=== PATIENT | female | born 1945 | race Caucasian/White ===

== ENCOUNTER 2019-12-16 16:28 | Observation (INO) | payer OTHER ==
--- OUTSIDE RECORDS SUMMARY | 2019-12-16 16:30 | XMS REPORT | Summary of Care ---
:1945 Author Organization [facility] Address [address] [place] [address] Care Team Providers Name Role Phone Solitario Titi Primary Care Provider Reason for Visit Reason Comments Skin Check Encounter Details Date Type Department Care Team Description 04/18/2019 Office Visit [facility] George Arizmendi ( Primary Dx); Dermatology-Cornelio Scott MD Other seborrheic keratosis; [place] [address] [address] History of nonmelanoma skin cancer; [address] [facility] [id number] Irritant dermatitis; [place], [place] Morin hemangioma; [address] [address] Neoplasm of uncertain behavior of skin o f [place], [place] [phone] [address] [phone] Allergies Active Allergy Reactions Severity Noted Date Comments Decongestant Tablet Other - See comments 12/31/2012 "things seem real bright" Atorvastatin Calcium Other - See comments 12/31/2012 Scalp tingles documented as of this encounter (statuses as of 04/18/2019) Medications Medication Sig Dispensed Refills Start Date End Date Status losartan-hydrochlorothi Take 1 Tab by 0 Active azide (HYZAAR) 100-25 mouth daily. mg per tablet MULTIVITS-MIN/FA/CA Take by mouth. 0 Active CARB/VIT K (ONE-A-DAY WOMEN'S 50+ ORAL) foLIC acid (FOLATE) 1 Take 1 mg by 0 Active mg tablet mouth daily. fluticasone (FLONASE) Use in each 0 Active 50 mcg/actuation nasal nostril daily. spray cetirizine (ZYRTEC) 10 Take 10 mg by 0 Active mg tablet mouth daily. levothyroxine Take 200 mcg by 0 Active (SYNTHROID) 200 mcg mouth every tablet morning. omeprazole (PRILOSEC Take 20 mg by 0 Active OTC) 20 mg tablet mouth daily. paroxetine (PAXIL) 10 Take 5 mg by 0 Active mg tablet mouth daily. VITAMIN B COMPLEX ORAL Take by mouth. 0 Active POTASSIUM CHLORIDE Take by mouth. 0 Active (KLOR-CON 10 ORAL) METFORMIN HCL Take 800 mg by 0 A ctive (METFORMIN ORAL) mouth 2 (two) times daily. triamcinolone acetonide Apply to area(s) 80 g 1 01/01/20 13 Active (TRIDERM) 0.1 % cream 2 (two) times daily. ezetimibe-simvastatin Take 1 Tab by 0 Active 10-40 (VYTORIN 10/40) mouth at bedtime. 10-40 mg tablet ASPIRIN (ASPIR-81 ORAL) Take by mouth 0 Active daily. PROAIR HFA 90 0 11/18/2015 Activ e mcg/actuation inhaler SYMBICORT 160-4.5 12 01/02/2016 A ctive mcg/actuation inhaler JANUVIA 100 mg tablet 3 01/02/2016 Active SPIRIVA WITH HANDIHALER 3 01/02/2016 Active 18 mcg inhalation device triamcinolone acetonide Apply to area(s) 30 g 0 01/11/20 16 Active (TRIDERM) 0.1 % cream 2 (two) times daily. canagliflozin 0 06/07/2016 Activ e (INVOKANA) 100 mg tablet metroNIDAZOLE 1 % Apply to 60 g 6 04/18/2019 A ctive creamIndications: affected area(s) Rosacea daily. Apply to face documented as of this encounter (statuses as of 04/18/2019) Active Problems No known active problemsdocumented as of this encounter (statuses as of 04/18/2019) Social History Tobacco Use Types Packs/Day Years Used Date Former Smoker Cigarettes Alcohol Use Drinks/Week oz/Week Comments Yes 0 Standard drinks or equivalent 0.0 Sex Assigned at Date Recorded Not on file Job Start Date Occupation Industry Not on file Not on file Not on file Travel History Travel Start Travel End No recent travel history available. documented as of this encounter Last Filed Vital Signs Not on filedocumented in this encounter Progress Notes Nica Robledo MD - 04/18/2019 11:00 AM CDT Mesha Mckeon is a 71 year old female. Cc: rash on face HPI Mesha Mckeon is a 73 year old female with a PMHx of NMSC who presents for her annual skin check. She c/o a rash on the right cheek, present for months, not painful or itching, only using cetaphil moisturizer on it. Also having excess sweating and itching below the breasts. Histories Mesha has no past medical history on file. She has no past surgical history on file. Her family history is not on file. She reports that she has quit smoking. Her smoking use included cigarettes. She does not have any smokeless tobacco history on file. She reports that she drinks alcohol. (+) History of skin cancer (-) family hx of skin cancer SCC, L lateral neck s/p excision - 04/2009 Allergies Mesha is allergic to decongestant tablet and lipitor [atorvastatin calcium]. Medications Mesha has a current medication list which includes the following prescription(s): canagliflozin, januvia, proair hfa, spiriva with handihaler, symbicort, triamcinolone acetonide, aspirin, ezetimibe-simvastatin 10-40, cetirizine, fluticasone propionate, folic acid, levothyroxine, losartan-hydrochlorothiazide, metformin hcl, mv-mn/folic acid/calcium/vit k, omeprazole, paroxetine, potassium chloride, triamcinolone acetonide, and vitamin b complex. Review of Systems Constitutional: No fevers, chills, weight loss. Psych: no mood changes or agitation. Heme: bleeding (-) Physical Exam Constitutional: well developed, well nourished, NAD Neuro: A&Ox3, Skin: warm, dry. FACE: Positive EYES: Negative NOSE: Negative EARS: Negative SCALP: Negative NECK: Positive CHEST: Negative ABDOMEN: Negative BACK: Negative RIGHT ARM: Negative LEFT ARM: Positive RIGHT LEG: Positive LEFT LEG: Positive (-)=Negative,(+)=Positive Actinic Keratosis (A): erythematous scaling papules Morin Hemaniogioma (CH): smooth red and purple papules Dermatitis Erythema (DE): mild to moderate erythema and scaling Dermatitis Lichenified (DL): lichenification and thickening Dermatitis Weeping (DW): weeping and excoriation Inflamed Seborrheic Keratosis (ISK): inflamed warty brown papules and plaques Millium (ML): Small white cystic papule Molluscum Contagiosum (MC): umbilicated papule Nevus Macular (NM): well circumscribed evenly pigmented macule Nevus Papular (GARMENT LOOPER): well circumscribed evenly pigmented papule Psoriasis Circumscribed (PC): well circumscribed erythema and scaling Psoriasis Diffuse (PD): diffuse patches of erythema and scaling Seborrheic Keratosis (SK): verrucous brown papules and plaques Scar (SR): cicatricial change Verruca Vulgarus (W): warty hyperkeratotic papule Right lower back Left lower back Assessment/Plan 1. Irritant Dermatitis - 2/2 detergents vs hyperhidrosis - discussed stopping irritating detergents/fragrances - start Sarna Sensitive - start Hydrocortisone 1% cream 2. Neoplasm of uncertain behavior - right and left lower back - Suspect arthropod bites - continue to monitor, will recheck in 4-5wks 3. Rosacea - cheeks - benign etiology discussed, reassurance provided. - start metrocream daily Seborrheic Keratosis/es - Benign appearing, reassurance provided. Morin Hemangioma - benign etiology discussed, reassurance provided. 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 - Counseled patient regarding sunscreen, sun avoidance, and sun protection. - Pt educated on ABCD's of melanoma. - Recommend regular skin checks. RTC 4-5weeks (check #2), 12months (full skin exam) Pt seen with Dr. Ugo Robledo MD Dermatology PGY-2 04/18/2019 Angella Garcia MA - 04/18/2019 11:00 AM Aviva Vladislav Mckeon is a 73 year old female who presents today for concerns of skin check. Patient is alert, ambulatory, and oriented. Medications and allergies have been reviewed. Patient has no complaintof pain. Patient's preferred language is kazakh. Vital signs deferred per provider. documented in this encounter Plan of Treatment Date Type Specialty Care Team Description 05/23/2019 Office Visit Dermatology Sam Arizmendi MD [address] [place], [place] [address] 04/23/2020 Office Visit Dermatology Sam Arizmendi MD [address] [place], [place] [address] Health Maintenance Due Date Last Done Comments HEPATITIS C (HCV) SCREEN 1945 DTaP,Tdap,and Td Vaccines (1 - Tdap) 1965 MAMMOGRAM 1986 COLONOSCOPY 1996 Zoster Recombinant Vaccine (SHINGRIX) (1 of 2) 1996 Medicare Wellness Visit 2011 Osteoporosis Screening 2011 PNEUMOCOCCAL VACCINES 65+ (1 of 2 - PCV13) 2011 INFLUENZA VACCINE (#1) 2019 documented as of this encounter Results Not on filedocumented in this encounter Visit Diagnoses Diagnosis Rosacea - Primary Other seborrheic keratosis History of nonmelanoma skin cancer Personal history of other malignant neop lasm of skin Irritant dermatitis Contact dermatitis and other eczema, due to unspecified cause Morin hemangioma Nevus, non-neoplastic Neoplasm of uncertain behavior of skin o f back documented in this encounter Insurance Payer Benefit Plan / Subscriber ID Effective Dates Phone Addre ss Type Group HUMANA - HUMANA [id number] 2016-[facility] care Adv MANAGED MEDICARE ERS t PPO MEDICARE (Work) documented as of this encounter Advance Directives Type Date Recorded 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
--- OUTSIDE RECORDS SUMMARY | 2019-12-16 16:30 | XMS REPORT | Summary of Care ---
:1945 Author Organization [facility] [employer] [facility] Address [address] [place] [address] Care Team Providers Name Role Phone Solitario Titi Primary Care Provider Reason for Visit Reason Comments Skin Check Encounter Details Date Type Department Care Team Description 04/18/2019 Office Visit [facility] George Arizmendi ( Primary Dx); Dermatology-Cornelio Scott MD Other seborrheic keratosis; [place] [address] [address] History of nonmelanoma skin cancer; [address] [facility] [id number] Irritant dermatitis; [place], [place] Mor[place] hemangioma; [address] [address] Neoplasm of uncertain behavior of skin o f [place], [place] [phone] [phone] Allergies Active Allergy Reactions Severity Noted Date [...] well circumscribed evenly pigmented macule Nevus Papular (AUTO SUSPENSION AND STEERING MECHANIC): well circumscribed evenly pigmented papule Psoriasis Circumscribed [...] no complaintof pain. Patient's preferred language is swedish. Vital signs deferred per provider. 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
--- OUTSIDE RECORDS SUMMARY | 2019-12-16 16:30 | XMS REPORT | Summary of Care ---
:[address] [facility] - [facility] Address [address] [place] [address] Care Team Providers Name Role Phone Kassi Titi Primary Care Provider Encounter Details Date Type Department Care Team Description 04/18/[address] [facility] Doctor Unassigned, No [address] [facility] [place] [address] [address] [place] [address] Allergies Active Allergy Reactions Severity Noted Date [...] 06/07/2016 Activ e (INVOKANA) 100 mg tablet documented as of this encounter (statuses as [...] Signs Not on filedocumented in this encounter Plan of Treatment Date Type Specialty Care Team Description 04/18/2019 Office Visit Dermatology Sam Arizmendi MD [address] [place] [address] Health Maintenance Due Date Last Done Comments HEPATITIS C (HCV) SCREEN 1945 DTaP,Tdap,and Td Vaccines (1 - Tdap) 1965 MAMMOGRAM 1986 COLONOSCOPY 1996 Zoster Recombinant Vaccine (SHINGRIX) (1 of 2) 1996 Medicare Wellness Visit 2011 Osteoporosis Screening 2011 PNEUMOCOCCAL VACCINES 65+ (1 of 2 - PCV13) 2011 INFLUENZA VACCINE (#1) 2019 documented as of this encounter Procedures Procedure Name Priority Date/Time Associated Diagnosis Comme nts ASSIGNMENT OF BENEFITS Routine 04/18/2019 10:34 AM CDT documented in this encounter Results Not on filedocumented in this encounter Insurance Payer Benefit Plan / Subscriber ID Effective Dates Phone Addre ss Type Group HUMANA - HUMANA [id number] 2016-[facility] Adv MANAGED MEDICARE ERS t PPO MEDICARE documented as of this encounter Advance Directives Type Date Recorded 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
--- OUTSIDE RECORDS SUMMARY | 2019-12-16 16:30 | XMS REPORT ---
:1945 Author Organization [facility] Address [address] [place] [address] Dr. Olmos [address] [place] [address] Care Team Providers Name Role Phone Unavailable Unavailable Unavailable Problems This patient has no known problems. Allergies, Adverse Reactions, Alerts This patient has no known allergies or adverse reactions. Medications This patient has no known medications.
--- OUTSIDE RECORDS SUMMARY | 2019-12-16 16:31 | XMS REPORT | Summary of Care ---
:1945 Author Organization [facility] - [facility] Address [address] [place] [address] Care Team Providers Name Role Phone Kassi Titi Primary Care Provider Reason for Visit Reason Comments Follow-up Right Carpal Tunnel release at [facility] [employer] [facility] on 08/22/2019 - 2 wk out today. removal of bandages a nd stiches in office. - EG Encounter Details Date Type Department Care Team Description 09/05/2019 Office Visit [facility] Orthopaedic Henok Celis ilateral hand pain Surgery- Frank Loomis MD (Primary Dx) [address] [place], [address] [place] [address] [place] [address] [place], [place] [phone] Allergies Active Allergy Reactions Severity Noted Date Comments Decongestant Tablet Other - See comments 12/31/2012 "things seem real bright" Atorvastatin Calcium Other - See comments 12/31/2012 Scalp tingles documented as of this encounter (statuses as of 09/05/2019) Medications Medication Sig Dispensed Refills Start Date [...] as of this encounter (statuses as of 09/05/2019) Active Problems No known active problemsdocumented as of this encounter (statuses as of 09/05/2019) Social History Tobacco Use Types Packs/Day Years [...] of this encounter Last Filed Vital Signs Vital Sign Reading Time Taken Comments Blood Pressure 144/74 09/05/2019 10:10 AM OPTICAL LATHE OPERATOR Pulse 94 09/05/2019 10:10 AM OPTICAL LATHE OPERATOR Temperature - - Respiratory Rate - - Oxygen Saturation - - Inhaled Oxygen Concentration - - Weight 90.7 kg (200 lb) 09/05/2019 10:10 AM OPTICAL LATHE OPERATOR Height 172.7 cm (5' 8") 09/05/2019 10:10 AM OPTICAL LATHE OPERATOR Body Mass Index 30.41 09/05/2019 10:10 AM OPTICAL LATHE OPERATOR documented in this encounter Progress Notes Henok Celis MD - 09/05/2019 10:15 AM CST Cc: Follow-up ( Right Carpal Tunnel release at [facility] [employer] on 08/22/2019 - 2 wk out today. removal of bandages and stiches in office. - EG ) Mesha Mckeon is a 74 year old female. S/P RT CTR Release. 2 weeks from the date of surgery. Sutures removed today. Allergies Mesha is allergic to decongestant tablet and lipitor [atorvastatin calcium]. Medications Outpatient Medications Prior to Visit Medication Sig Dispense Refill metroNIDAZOLE 1 % cream Apply to affected area(s) daily. Apply to face 60 g 6 canagliflozin (INVOKANA) 100 mg tablet JANUVIA 100 mg tablet 3 PROAIR HFA 90 mcg/actuation inhaler SPIRIVA WITH HANDIHALER 18 mcg inhalation device 3 SYMBICORT 160-4.5 mcg/actuation inhaler 12 triamcinolone acetonide (TRIDERM) 0.1 % cream Apply to area(s) 2 (two) times daily. 30 g 0 ASPIRIN (ASPIR-81 ORAL) Take by mouth daily. ezetimibe-simvastatin 10-40 (VYTORIN 10/40) 10-40 mg tablet Take 1 Tab by mouth at bedtime. cetirizine (ZYRTEC) 10 mg tablet Take 10 mg by mouth daily. fluticasone (FLONASE) 50 mcg/actuation nasal spray Use in each nostril daily. foLIC acid (FOLATE) 1 mg tablet Take 1 mg by mouth daily. levothyroxine (SYNTHROID) 200 mcg tablet Take 200 mcg by mouth every morning. losartan-hydrochlorothiazide (HYZAAR) 100-25 mg per tablet Take 1 Tab by mouth daily. METFORMIN HCL (METFORMIN ORAL) Take 800 mg by mouth 2 (two) times daily. MULTIVITS-MIN/FA/CA CARB/VIT K (ONE-A-DAY WOMEN'S 50+ ORAL) Take by mouth. omeprazole (PRILOSEC OTC) 20 mg tablet Take 20 mg by mouth daily. paroxetine (PAXIL) 10 mg tablet Take 5 mg by mouth daily. POTASSIUM CHLORIDE (KLOR-CON 10 ORAL) Take by mouth. triamcinolone acetonide (TRIDERM) 0.1 % cream Apply to area(s) 2 (two) times daily. 80 g 1 VITAMIN B COMPLEX ORAL Take by mouth. No facility-administered medications prior to visit. Histories History reviewed. No pertinent past medical history. History reviewed. No pertinent surgical history. Social History Socioeconomic History Marital status: Spouse name: Not on file Number of children: Not on file Years of education: Not on file Highest education level: Not on file Occupational History Not on file Social Needs Financial resource strain: Not on file Food insecurity: Worry: Not on file Inability: Not on file Transportation needs: Medical: Not on file Non-medical: Not on file Tobacco Use Smoking status: Former Smoker Types: Cigarettes Substance and Sexual Activity Alcohol use: Yes Alcohol/week: 0.0 standard drinks Drug use: Not on file Sexual activity: Not on file Lifestyle Physical activity: Days per week: Not on file Minutes per session: Not on file Stress: Not on file Relationships Social connections: Talks on phone: Not on file Gets together: Not on file Attends christian service: Not on file Active member of club or organization: Not on file Attends meetings of clubs or organizations: Not on file Relationship status: Not on file Intimate partner violence: Fear of current or ex partner: Not on file Emotionally abused: Not on file Physically abused: Not on file Forced sexual activity: Not on file Other Topics Concern Not on file Social History Narrative Not on file History reviewed. No pertinent family history. Review of Systems Constitutional: Negative. HENT: Negative. Eyes: Negative. Respiratory: Negative. Breasts: Negative. Cardiovascular: Negative. Gastrointestinal: Negative. Genitourinary: Negative. Musculoskeletal: Negative. Skin: Negative. Neurological: Positive for numbness. Psychiatric/Behavioral: Negative. Endocrine: Endocrine negative Vital Signs Ht 68" (172.7 cm) | Wt 90.7 kg (200 lb) | BMI 30.41 kg/m Physical Exam Musculoskeletal: General: Well-developed well-nourished oriented to person place and time HEENT normocephalic atraumatic atraumatic pupils equal round reactive to light extraocular muscles intact Cervical thoracic and lumbar spine without focal deficit normal kyphosis and lordosis Chest clear to auscultation and percussion Cardiovascular regular rate and rhythm without gallop rub or murmur soft without organomegaly Normal bowel sounds Neurologic: Focal myotome or dermatomal deficits Vascular: Intact symmetrical bilateral upper and lower extremities Skin without stasis varicosities or breakdown Extremities without cyanosis clubbing or edema Lymphatics no peripheral lymphedema Psych normal mood and affect. Neurovascular function is intact. To include brisk capillary refill warm pink skin active motor function and sensory function intact. The wound is well approximated. It is healing nicely. There is no drainage at this time. It is not hot to the touch no erythema no edema no purulent drainage. Nursing note and vitals reviewed. Assessment/Plan Diagnosis: S/P RT CTR Plan: Placed steristrips in the incision after suture removal. May gradually resume normal activities as tolerated. Follow up prn. documented in this encounter Plan of Treatment Date Type Specialty Care Team Description 04/23/2020 Office Visit Dermatology Sam Arizmendi MD [address] [place], [place] [address] Health Maintenance Due Date Last Done Comments HEPATITIS C (HCV) SCREEN 1945 DTaP,Tdap,and Td Vaccines (1 - Tdap) 1957 Breast Cancer Screening (MAMMOGRAM) 1986 COLONOSCOPY 1996 Zoster Recombinant Vaccine (SHINGRIX) (1 of 2) 1996 LUNG CANCER SCREEN: Recommended for age 55-80 with 30 + 06/03/20 01 pack year history Medicare Wellness Visit 2011 Osteoporosis Screening 2011 PNEUMOCOCCAL VACCINES 65+ (1 of 2 - PCV13) 2011 INFLUENZA VACCINE (#1) 2019 documented as of this encounter Results Not on filedocumented in this encounter Visit Diagnoses Diagnosis Bilateral hand pain - Primary Pain in limb documented in this encounter Insurance Payer Benefit Plan / Subscriber ID Effective Dates Phone Addre ss Type Group HUMANA - HUMANA [id number] 2016-[facility] care Adv MANAGED MEDICARE ERS t PPO MEDICARE (Work) documented as of this encounter Advance Directives Type Date Recorded 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
--- OUTSIDE RECORDS SUMMARY | 2019-12-16 16:31 | XMS REPORT | Summary of Care ---
:1945 Author Organization [facility] - [facility] Address [address] [place] [address] Care Team Providers Name Role Phone Titi Solitario Primary Care Provider Reason for Visit Auth/Cert Status Reason Specialty Diagnoses / Procedures Referred By Titi ontact Referred To Contact [facility] [address] [place] [address] Encounter Details Date Type Department Care Team Description 08/22/2019 Hospital Encounter [facility] Henok Celis, [address] [place] [address] [address] [place] [address] Allergies Active Allergy Reactions Severity Noted Date Comments Decongestant Tablet Other - See comments 12/31/2012 "things seem real bright" Atorvastatin Calcium Other - See comments 12/31/2012 Scalp tingles documented as of this encounter (statuses as of 09/04/2019) Medications Medication Sig Dispensed Refills Start Date [...] as of this encounter (statuses as of 09/04/2019) Active Problems No known active problemsdocumented as of this encounter (statuses as of 09/04/2019) Social History Tobacco Use Types Packs/Day Years [...] Treatment Date Type Specialty Care Team Description 09/05/2019 Office Visit Orthopedic Surgery Celis, Line Walker ig L, MD [address] [place] [phone] 04/23/2020 Office Visit Dermatology Sam Arizmendi MD [address] [place], [place] [address] Health Maintenance Due Date [...] Addre ss Type Group HUMANA - HUMANA [id number] 2016-[facility] Adv MANAGED MEDICARE ERS t PPO MEDICARE (Work) documented as of this encounter Advance Directives Type Date Recorded 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
--- OUTSIDE RECORDS SUMMARY | 2019-12-16 16:31 | XMS REPORT | Summary of Care ---
:1945 Author Organization [facility] - [facility] Address [address] [place] [address] Care Team Providers Name Role Phone Kassi Titi Primary Care Provider Encounter Details Date Type Department Care Team Description 08/22/2019 Orders Only [facility] Doctor Unassigned, No [address] [facility] [place] [address] [address] [place] [address] Allergies Active Allergy Reactions Severity Noted Date [...] Arizmendi MD [address] [place], [place] [address] Health Maintenance Due Date [...] Name Priority Date/Time Associated Diagnosis Comme nts NON [facility] Routine 08/22/2019 12:01 AM DOCUMENTATION COMMUNITY REPRESENTATIVE documented in this encounter Results Not on filedocumented in this encounter Insurance Payer Benefit Plan / Subscriber ID Effective Dates Phone Addre ss Type Group HUMANA - HUMANA [id number] 2016-[facility] Adv MANAGED MEDICARE ERS t PPO MEDICARE documented as of this encounter Advance Directives Type Date Recorded 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
--- OUTSIDE RECORDS SUMMARY | 2019-12-16 16:32 | XMS REPORT | Summary of Care ---
:1945 Author Organization [facility] - [facility] Address [address] [place] [id number] Care Team Providers Name Role Phone Kassi Titi Primary Care Provider Reason for Visit Reason Comments Follow-up Right Carpal Tunnel release [place] [facility] [employer] [facility] on 08/22/2019 - 2 wk out today. removal of bandages a nd stiches in office. 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
[2019-12-16 17:29] LABS: Basophils % 0.9 % (0-1.3); Lymphocytes % 11.6 % (15.3-44.8); RBC Red Blood Cell Count 4.85 M/uL (3.86-4.86)
[2019-12-16 17:33] LABS: Protime INR 1.05
[2019-12-16 17:48] LABS: ALT/SGPT 30 U/L (12-78); AST/SGOT 17 U/L (15-37); Albumin 3.9 g/dL (3.4-5.0); Alkaline Phosphatase 82 U/L (45-117); BUN Blood Urea Nitrogen 11 mg/dL (7-18); Bicarbonate 28 mmol/L (21-32); Bilirubin Direct 0.3 mg/dL (0-0.2); Bilirubin Total 1.1 mg/dL (0.2-1.0); Glucose Level 110 mg/dL (74-106); Magnesium 1.5 mg/dL (1.8-2.4); NT PRO-BNP 137 pg/mL (<125); Potassium 3.4 mmol/L (3.5-5.1); Protein, Total 7.8 g/dL (6.4-8.2); Sodium Level 138 mmol/L (136-145); Troponin (Emerg Dept Use Only) < 0.02 ng/mL (0.0-0.045)
--- NOTE | 2019-12-16 17:59 | RAD REPORT ---
EXAM DESCRIPTION: RAD - Chest Single View - 12/16/2019 5:26 pm CLINICAL HISTORY: CHEST PAIN Chest pain. COMPARISON: CHEST PA AND LAT 2 VIEW dated 03/24/2015; CHEST PA AND LAT 2 VIEW dated 03/31/2009; CHEST P A AND LAT 2 VIEW dated 07/12/2002 FINDINGS: Portable technique limits examination quality. The lungs are grossly clear. The heart is normal in size. No displaced fractures. IMPRESSION: No acute intrathoracic process suspected.
--- NOTE | 2019-12-16 18:07 | ER ---
Nurse's Notes [facility] Name: Mesha Mckeon Age: 74 yrs Sex: Female : 1945 Arrival Date: 12/16/2019 Time: 16:30 Bed 8 Private MD: Shelbi Solitario C Diagnosis: Chest pain, unspecified;Palpitations Presentation: 12/15 16:43 Chief complaint: Patient states: Chest discomfort and palpitations since yesterday. ca1 Reports pain on L shoulder down the L arm, neck, and SOB with palpitations. Coronavirus screen: Proceed with normal triage. Patient denies a cough. Patient reports shortness of breath or difficulty breathing. Patient denies measured and/or subjective temperature greater than 100.4F prior to today's visit. Patient denies travel on a cruise ship or to a country the [facility] currently lists as an affected area. Patient denies contact with known and/or suspected case of COVID-19. Ebola Screen: Patient negative for fever greater than or equal to 101.5 degrees Fahrenheit, and additional compatible Ebola Virus Disease symptoms Patient denies exposure to infectious person. Patient denies travel to an Ebola-affected area in the 21 days before illness onset. No symptoms or risks identified at this time. Initial Sepsis Screen: Does the patient meet any 2 criteria? No. Patient's initial sepsis screen is negative. Does the patient have a suspected source of infection? No. Patient's initial sepsis screen is negative. Risk Assessment: Do you want to hurt yourself or someone else? Patient reports no desire to harm self or others. Onset of symptoms was December 16, 2019. 16:43 Method Of Arrival: Ambulatory ca1 16:43 Acuity: EVA 3 ca1 Historical: - Allergies: 16:50 Beta-Blockers (Beta-Adrenergic Blocking Agts); ca1 16:50 Lipitor; ca1 16:50 Decongestants; ca1 16:50 JABARI INHIBITORS; ca1 18:09 Klor-Con 10; ca1 - Home Meds: 16:50 losartan-hydrochlorothiazide 100-12.5 mg oral tab 1 tab once daily [Active]; amlodipine ca1 5 mg tab 1 tab once daily [Active]; Synthroid 137 mcg Oral tab 1 tab once daily [Active]; omeprazole 20 mg Oral cpDR 1 cap once daily [Active]; aspirin 81 mg Oral chew 1 tab once daily [Active]; 18:09 metformin 1,000 mg Oral tab 1 tab 2 times per day [Active]; Januvia 100 mg oral tab 1 ca1 tab once daily [Active]; glipizide 2.5 mg Oral tr24 1 tabs once daily [Active]; Vytorin 10-40 10-40 mg oral tab 1 tab once daily [Active]; Flonase 50 mcg/actuation Nasal spsn 2 sprays once daily [Active]; - PMHx: 16:50 Diabetes - NIDDM; Hypertension; ca1 - PSHx: 16:50 Knee surgery; aortic aneurysm repair; Hysterectomy; Tonsillectomy; D \T\ C; ca1 - Immunization history:: Adult Immunizations up to date, Pneumococcal vaccine is up to date, Flu vaccine is up to date. - Social history:: Smoking status: Patient/guardian denies using tobacco, the patient reports quitting approximately 10 years ago. - Family history:: not pertinent. - Hospitalizations: : No recent hospitalization is reported. Screenin:37 Abuse screen: Denies threats or abuse. Denies injuries from another. Nutritional sv screening: No deficits noted. Tuberculosis screening: No symptoms or risk factors identified. Fall Risk None identified. Assessment: 17:05 General: Appears in no apparent distress. comfortable, well developed, Behavior is sv calm, cooperative, appropriate for age. Pain: Complains of pain in chest Pain radiates to left arm Is continuous. Neuro: Level of Consciousness is awake, alert, obeys commands, Oriented to person, place, time, situation, Moves all extremities. Full function. Cardiovascular: Reports palpitations, Patient's skin is warm and dry. Rhythm is sinus tachycardia. Respiratory: Airway is patent Respiratory effort is even, unlabored, Respiratory pattern is regular, symmetrical. Derm: Skin is intact, Skin is pink, warm \T\ dry. Musculoskeletal: Range of motion: intact in all extremities. 18:15 Reassessment: Patient appears in no apparent distress at this time. No changes from sv previously documented assessment. Patient and/or family updated on plan of care and expected duration. Pain level reassessed. Patient is alert, oriented x 3, equal unlabored respirations, skin warm/dry/pink. 18:56 Reassessment: Patient appears in no apparent distress at this time. No changes from sv previously documented assessment. Patient and/or family updated on plan of care and expected duration. Pain level reassessed. Patient is alert, oriented x 3, equal unlabored respirations, skin warm/dry/pink. Pt given sandwich, chips and water. 19:27 General: Appears in no apparent distress. comfortable, Behavior is calm, cooperative, jd3 appropriate for age. Pain: Denies pain. Neuro: Level of Consciousness is awake, alert, obeys commands, Oriented to person, place, time, situation. Cardiovascular: Reports palpitations prior to arrival Capillary refill < 3 seconds Patient's skin is warm and dry. Rhythm is regular. Respiratory: Airway is patent Respiratory effort is even, unlabored, Respiratory pattern is regular, symmetrical, Denies cough, shortness of breath. GI: No signs and/or symptoms were reported involving the gastrointestinal system. : No signs and/or symptoms were reported regarding the genitourinary system. EENT: No signs and/or symptoms were reported regarding the EENT system. Derm: Skin is intact, Skin is dry, Skin is normal, Skin temperature is warm. Musculoskeletal: Circulation, motion, and sensation intact. Range of motion: intact in all extremities. 19:28 Reassessment: awaiting room number for admission. jd3 19:28 Pain: Pain began gradually. jd3 20:15 Reassessment: Patient appears in no apparent distress at this time. Patient and/or jd3 family updated on plan of care and expected duration. Pain level reassessed. Patient is alert, oriented x 3, equal unlabored respirations, skin warm/dry/pink. awaiting admission. report attempt called to 2nd floor, was told the nurse will call back. 20:28 Reassessment: report given to Angelita GAO. jd3 Vital Signs: 16:43 BP 149 / 80; Pulse 101; Resp 15 S; Temp 98.3(O); Pulse Ox 95% on R/A; Weight 92.99 kg ca1 (R); Height 5 ft. 8 in. (172.72 cm) (R); 18:00 BP 132 / 85; Pulse 82; Resp 14; Pulse Ox 95% on R/A; sv 18:30 BP 151 / 89; Pulse 82; Resp 19; Pulse Ox 96% on R/A; sv 19:29 BP 165 / 92; Pulse 85; Resp 19 S; Pulse Ox 95% on R/A; Pain 0/10; jd3 20:15 BP 143 / 78; Pulse 89; Resp 18 S; Pulse Ox 94% on R/A; jd3 16:43 Body Mass Index 31.17 (92.99 kg, 172.72 cm) ca1 ED Course: 16:30 Patient arrived in ED. as 16:30 Shelbi Solitario MD is Private Physician. as 16:37 Fernando Brumfield MD is Attending Physician. rn 16:37 Jovita Sparks RN is Primary Nurse. sv 16:37 Arm band placed on Patient placed in an exam room, on a stretcher. sv 16:37 Patient has correct armband on for positive identification. Bed in low position. Call sv light in reach. monitor worker on. Pulse ox on. NIBP on. 16:46 ED physician to see patient. sv 16:46 Triage completed. ca1 17:00 Patient maintains SpO2 saturation greater than 95% on room air. sv 17:15 Initial lab(s) drawn, by me, sent to lab. Inserted saline lock: 20 gauge in right jl7 antecubital area, using aseptic technique. Blood collected. 17:26 XRAY Chest (1 view) In Process Unspecified. EDMS 17:55 Awaiting radiology results. sv 17:55 LFT's Sent. sv 17:55 Basic Metabolic Panel Sent. sv 18:05 Shelbi Solitario MD is Hospitalizing Provider. rn 18:57 Report given to Abad GAO and Leonel GAO. sv 18:58 Primary Nurse role handed off by Jovita Sparks RN sv 19:01 Leonel Marie RN is Primary Nurse. jd3 20:29 No provider procedures requiring assistance completed. Patient admitted, IV remains in jd3 place. Administered Medications: 18:12 Drug: Aspirin Chewable Tablet 243 mg {Note: ordered to give [address] Brumfield because sv she already took 1 this morning.} Route: PO; 18:26 Follow up: Response: No adverse reaction sv Outcome: 18:06 Decision to Hospitalize by Provider. rn 20:29 Admitted to Med/surg accompanied by tech, via wheelchair, room 216, with chart, Report jd3 called to Angelita GAO 20:29 Condition: stable 20:29 Instructed on the need for admit, Demonstrated understanding of instructions. 21:03 Patient left the ED. jd3 Signatures: Dispatcher [employer] Jovita Scanlon, RN RN Opal Payne Roman, MD MD rn ClaytonAdilson RN RN jl7 Leonel Marie RN RN jd3 Kiesha Field RN RN ca1
--- NOTE | 2019-12-16 18:07 | EDPHYS ---
Physician Documentation [facility] Name: Mesha Mckeon Age: 74 yrs Sex: Female : 1945 Arrival Date: 12/16/2019 Time: 16:30 Bed 8 Private MD: Shelbi Solitario C ED Physician Fernando Brumfield HPI: 12/15 17:49 This 74 yrs old Female presents to ER via Ambulatory with complaints of Chest rn Pain, Palpitations, Arm Pain. 17:49 The patient or guardian reports chest pain that is located primarily in the anterior rn chest wall, left. Onset: 2 day(s) ago. The pain radiates to left neck. The chest pain is described as aching. Duration: The patient or guardian reports multiple episodes, that are intermittent. Modifying factors: The symptoms are alleviated by nothing. the symptoms are aggravated by nothing. Severity of pain: At its worst the pain was mild in the emergency department the pain has improved. The patient has not experienced similar symptoms in the past. The patient has not recently seen a physician. Reports left upper outer chest pain, + left neck and shoulder/arm pain, no diaphoresis or nausea/vomiting, not worse with exertion, has been walking 2 miles/night without pain. No trauma. No fever/cough. + intermittent sob and palpitations. Attributed palpitations to diflucan. No known cardiac problems but does have hx of AAA with stent, infrarenal. . Historical: - Allergies: 16:50 Beta-Blockers (Beta-Adrenergic Blocking Agts); ca1 16:50 Lipitor; ca1 16:50 Decongestants; ca1 16:50 JABARI INHIBITORS; ca1 18:09 Klor-Con 10; ca1 - Home Meds: 16:50 losartan-hydrochlorothiazide 100-12.5 mg oral tab 1 tab once daily [Active]; amlodipine ca1 5 mg tab 1 tab once daily [Active]; Synthroid 137 mcg Oral tab 1 tab once daily [Active]; omeprazole 20 mg Oral cpDR 1 cap once daily [Active]; aspirin 81 mg Oral chew 1 tab once daily [Active]; 18:09 metformin 1,000 mg Oral tab 1 tab 2 times per day [Active]; Januvia 100 mg oral tab 1 ca1 tab once daily [Active]; glipizide 2.5 mg Oral tr24 1 tabs once daily [Active]; Vytorin 10-40 10-40 mg oral tab 1 tab once daily [Active]; Flonase 50 mcg/actuation Nasal spsn 2 sprays once daily [Active]; - PMHx: 16:50 Diabetes - NIDDM; Hypertension; ca1 - PSHx: 16:50 Knee surgery; aortic aneurysm repair; Hysterectomy; Tonsillectomy; D \T\ C; ca1 - Immunization history:: Adult Immunizations up to date, Pneumococcal vaccine is up to date, Flu vaccine is up to date. - Social history:: Smoking status: Patient/guardian denies using tobacco, the patient reports quitting approximately 10 years ago. - Family history:: not pertinent. - Hospitalizations: : No recent hospitalization is reported. ROS: 17:49 Constitutional: Negative for fever, chills, and weight loss, Eyes: Negative for injury, rn pain, redness, and discharge, Neck: Negative for injury, and swelling, Cardiovascular: Negative for edema Respiratory: Negative for cough, wheezing, and pleuritic chest pain, Abdomen/GI: Negative for abdominal pain, nausea, vomiting, diarrhea, and constipation, MS/Extremity: Negative for injury and deformity, Skin: Negative for injury, rash, and discoloration, Neuro: Negative for headache, weakness, numbness, tingling, and seizure. Exam: 17:49 Constitutional: This is a well developed, well nourished patient who is awake, alert, rn and in no acute distress. Head/Face: Normocephalic, atraumatic. Neck: Trachea midline, no thyromegaly or masses palpated, and no cervical lymphadenopathy. Supple, full range of motion without nuchal rigidity, or vertebral point tenderness. No Meningismus. Cardiovascular: Regular rate and rhythm with a normal S1 and S2. No gallops, murmurs, or rubs. Normal PMI, no JVD. No pulse deficits. Respiratory: Lungs have equal breath sounds bilaterally, clear to auscultation and percussion. No rales, rhonchi or wheezes noted. No increased work of breathing, no retractions or nasal flaring. Abdomen/GI: Soft, non-tender, with normal bowel sounds. No distension or tympany. No guarding or rebound. No evidence of tenderness throughout. Skin: Warm, dry MS/ Extremity: Pulses equal, no cyanosis. Neuro: Awake and alert, GCS 15, oriented to person, place, time, and situation. Cranial nerves II-XII grossly intact. Motor strength 5/5 in all extremities. Sensory grossly intact. 18:47 ECG was reviewed by the Attending Physician. rn Vital Signs: 16:43 BP 149 / 80; Pulse 101; Resp 15 S; Temp 98.3(O); Pulse Ox 95% on R/A; Weight 92.99 kg ca1 (R); Height 5 ft. 8 in. (172.72 cm) (R); 18:00 BP 132 / 85; Pulse 82; Resp 14; Pulse Ox 95% on R/A; sv 18:30 BP 151 / 89; Pulse 82; Resp 19; Pulse Ox 96% on R/A; sv 19:29 BP 165 / 92; Pulse 85; Resp 19 S; Pulse Ox 95% on R/A; Pain 0/10; jd3 20:15 BP 143 / 78; Pulse 89; Resp 18 S; Pulse Ox 94% on R/A; jd3 16:43 Body Mass Index 31.17 (92.99 kg, 172.72 cm) ca1 MDM: 16:37 Patient medically screened. rn 17:57 Differential diagnosis: coronary artery disease chest wall pain, costochondritis, rn esophagitis, gastritis, gastroesophageal reflux disease (GERD), pleurisy, pneumothorax. Data reviewed: vital signs, nurses notes, lab test result(s), EKG, radiologic studies, plain films, and as a result, I will admit patient. Test interpretation: by ED physician or midlevel provider: ECG, plain radiologic studies, CXR neg for pneumonia/pneumothorax. Counseling: I had a detailed discussion with the patient and/or guardian regarding: the historical points, exam findings, and any diagnostic results supporting the discharge/admit diagnosis, lab results, radiology results, the need for further work-up and treatment in the hospital. Admission orders: after a detailed discussion of the patient's condition and case, the admit orders are written by me. 12/15 16:57 Order name: Basic Metabolic Panel rn 12/15 16:57 Order name: CBC with Diff; Complete Time: 17:46 rn 12/15 16:57 Order name: LFT's rn 12/15 16:57 Order name: Magnesium; Complete Time: 17:55 rn 12/15 16:57 Order name: NT PRO-BNP; Complete Time: 17:55 rn 12/15 16:57 Order name: PT-INR; Complete Time: 17:49 rn 12/15 16:57 Order name: Troponin (emerg Dept Use Only); Complete Time: 17:55 rn 12/15 16:57 Order name: XRAY Chest (1 view); Complete Time: 18:04 rn 12/15 16:57 Order name: EKG; Complete Time: 16:58 rn 12/15 16:57 Order name: Cardiac monitoring; Complete Time: 17:07 rn 12/15 16:58 Order name: Basic Metabolic Panel; Complete Time: 17:55 [facility] 12/15 16:58 Order name: Liver (Hepatic) Function; Complete Time: 17:55 [facility] 12/15 18:14 Order name: Diet Heart Healthy; Complete Time: 18:14 12/15 16:57 Order name: EKG - Nurse/Tech; Complete Time: 17:07 rn 12/15 16:57 Order name: IV Saline Lock; Complete Time: 17:55 rn 12/15 16:57 Order name: Labs collected and sent; Complete Time: 17:55 rn 12/15 16:57 Order name: O2 Per Protocol; Complete Time: 17:07 rn 12/15 16:57 Order name: O2 Sat Monitoring; Complete Time: 17:07 rn EC:47 Rate is 89 beats/min. Rhythm is regular. QRS [place] is Normal. VA interval is normal. QRS rn interval is normal. QT interval is normal. No Q waves. T waves are Normal. No ST changes noted. Clinical impression: Normal ECG. Interpreted by me. Reviewed by me. Administered Medications: 18:12 Drug: Aspirin Chewable Tablet 243 mg {Note: ordered to give [address] Brumfield because sv she already took 1 this morning.} Route: PO; 18:26 Follow up: Response: No adverse reaction sv Disposition: 12/16/19 18:06 Hospitalization ordered by Shelbi Solitario for Observation. Preliminary diagnosis are Chest pain, unspecified, Palpitations. - Bed requested for Telemetry/MedSurg (observation). - Status is Observation. jd3 - Condition is Stable. - Problem is new. - Symptoms have improved. Signatures: Dispatcher [employer] EDJovita Sampson RN RN sv Woody, Diana, RN RN dw Fernando Brumfield MD MD rn Davies, Jonathon, RN RN jd3 Kiesha Field RN RN ca1 Corrections: (The following items were deleted from the chart) 19:36 18:06 Hospitalization Ordered by A Kassi SCHAFFER for Observation. Preliminary diagnosis is dw Chest pain, unspecified; Palpitations. Bed requested for Telemetry/MedSurg (observation). Status is Observation. Condition is Stable. Problem is new. Symptoms have improved. rn 21:03 19:36 12/16/2019 18:06 Hospitalization Ordered by A Kassi SCHAFFER for Observation. jd3 Preliminary diagnosis is Chest pain, unspecified; Palpitations. Bed requested for Telemetry/MedSurg (observation). Status is Observation. Condition is Stable. Problem is new. Symptoms have improved. dw
[2019-12-16] MEDS ORDERED: ASPIRIN 81 MG CHEWABLE TABLET ONE (18:16)
[2019-12-16] MEDS ORDERED: ONDANSETRON 4 MG/2 ML VIAL IV PRN (21:15)
[2019-12-16 21:19] VITALS: BMI 31.3
[2019-12-16] MEDS ORDERED: POTASSIUM CL SA 10 MEQ TAB PO ONE (21:25)
[2019-12-16] MEDS ORDERED: ALPRAZOLAM 0.25 MG TABLET PO PRN (21:25)
[2019-12-16] MEDS ORDERED: MAGNESIUM SULFATE 1 gm IVPB 1 GM/100 ML BAG IV ONE (21:25)
--- NOTE | 2019-12-17 00:32 | HP ---
Date of Admission: 12/16/2019 Chief Complaint: Chest pain, palpitations, and arm pain. History Of Present Illness: A 74-year-old very pleasant female patient who started to take diabetes medication few months ago, which was I believe like Farxiga and after she started taking that, she started to have yeast infection and we stopped that few months ago. Last week she talked to me, informed me that she continues to have ongoing yeast infection problem and this is vaginal yeast infection, so we decided to give her Diflucan 100 mg p.o. daily for 1 week. Today, she called office and told me that as of yesterday she started to have sharp chest pain lasting for a short period of time, but mostly she has been having heart palpitation feeling like having pain in her left arm, left shoulder, and left side of neck. She is not feeling good at all as she described and after I talked to her on the phone today for tele visit, she was instructed to come to emergency room for further evaluation and after she was evaluated in the ER, she was admitted to the hospital. ER physician was contacted with all this information and details and after he evaluated, he called me and the patient was admitted to the hospital. I saw her in the emergency room this evening. Allergies: TO JABARI INHIBITOR CAUSING COUGH AND ATORVASTATIN CAUSING COUGH, TINGLING SENSATION. Medications: List reviewed. Review of Systems: Cardiovascular: As mentioned above. All other systems reviewed and negative. Past Medical History: Significant for peripheral neuropathy, allergic rhinitis, hypothyroidism, type 2 diabetes mellitus, COPD, hypertension, hyperlipidemia, abdominal aortic aneurysm, gastroesophageal reflux disease, and insomnia. Past Surgical History: Tonsillectomy, carpal tunnel release of right hand, hysterectomy, abdominal aortic aneurysm surgery in form of endograft placement on June 17, 2014, arthroscopic knee surgery and bunion surgery and breast biopsy which was benign in 2015. Family History: Father had heart disease. Mother, diabetes, congestive heart failure, and dementia. Social History: Prior history of smoking, not at present time. Use of alcohol negative. Physical Examination: VITAL SIGNS: Height 5 feet 11 inches, weight 92.99 kg, temperature 98.3, pulse 101, blood pressure 149/80, respiratory rate 15. General: Awake, alert, oriented, not in distress. HEENT: Head atraumatic, normocephalic. Conjunctivae nonerythematous. Sclerae white. Mouth, no thrush or edema noted. Ears/Nose, no mass, lesion, discharge noted. Neck: Supple. No JVD, lymph nodes, bruit, thyromegaly noted. Lungs: Bilateral good equal air entry. Clear to auscultation. No rhonchi. No rales. Heart: Normal heart sounds, no murmur or gallop. Abdomen: Soft, bowel sounds normal. No guarding, rigidity, tenderness, mass, hepatosplenomegaly, distention, or bruit noted. Extremities: No leg edema. No calf tenderness. Skin: No rash, ulcer, cellulitis. Lymphatics: No lymph node enlargement in neck, supraclavicular, infraclavicular region. Neuro: No focal neurological deficit. Chest: Unremarkable. External Genitalia: Deferred. Rectal: Deferred. Laboratory Data: White count 8.4, hemoglobin 13.7, platelets 310. Sodium 138 potassium 3.4, chloride 101, bicarb 28, BUN 11, creatinine 1, glucose 110, magnesium 1.5. Liver function tests unremarkable. Troponin less than 0.02. Chest x-ray, no acute cardiopulmonary changes. EKG, no acute abnormality noted. Normal sinus rhythm. Impression: 1. Chest pain. 2. Palpitation. 3. Hypertension. 4. Hyperlipidemia. 5. Type 2 diabetes mellitus. 6. Hypothyroidism. 7. Insomnia. 8. Chronic obstructive pulmonary disease. 9. Gastroesophageal reflux disease. 10. Abdominal aortic aneurysm. Plan: Admit patient to hospital for further evaluation and management of this problem. We will admit her to telemetry. Consult Cardiology. Get serial cardiac enzymes. Home medications will be continued per order. Tomorrow morning, we will get an echocardiogram and a stress test and details and plan of treatment discussed with the patient. We will monitor her for any cardiac arrhythmia. Replace electrolyte per protocol. We will communicate details with demonstrator sales. EMILEE/MODL Voice ID: [id number]
[2019-12-17 04:37] LABS: Absolute Lymphocytes (CBC) 1.9 K/uL (0.7-4.9); Basophils % 0.7 % (0-1.3); Hematocrit 36.9 % (36.0-45.0); Lymphocytes % 23.3 % (15.3-44.8); MPV 8.1 fL (7.6-11.3); RBC Red Blood Cell Count 4.36 M/uL (3.86-4.86)
[2019-12-17 04:51] LABS: Magnesium 1.9 mg/dL (1.8-2.4); Potassium 3.4 mmol/L (3.5-5.1)
[2019-12-17] MEDS ORDERED: REGADENOSON 0.4 MG/5 ML SYR IV ONE (08:12)
[2019-12-17] MEDS ORDERED: ASPIRIN EC 81 MG TAB PO SCH (09:00)
[2019-12-17] MEDS ORDERED: POTASSIUM CL SA 10 MEQ TAB PO ONE (09:00)
[2019-12-17 12:02] VITALS: O2SAT 95
--- NOTE | 2019-12-17 12:28 | RAD REPORT ---
EXAM DESCRIPTION: NM - Rest Stress Cardiac Imaging - 12/17/2019 12:08 pm CLINICAL HISTORY: Chest pain COMPARISON: None. TECHNIQUE: The patient was administered 10.5 mCi of Tc 99m Sestamibi prior to resting SPECT imaging of the heart. The patient was then administered 31.5 mCi of Tc 99m Sestamibi following exercise or ph armacologic stress. Multiplanar SPECT images were reviewed. FINDINGS: The end diastolic volume is 88 ml, the end systolic volume is 37 ml, and the ejection frac tion is 58 %. No stress-induced ischemia confirmed. Slight decrease in activity in the anterior wall mid in apex p ortion is believed to be soft tissue attenuation. This is not clearly different between rest and stre ss imaging. No other focal left ventricular myocardial findings. IMPRESSION: No stress induced ischemia or other suspicious findings. Ventricular volumes and ejection fraction normal range.
--- NOTE | 2019-12-17 13:51 | CON ---
Date of Consultation: 12/17/2019 Reason For Consultation: Chest pain and palpitations. History Of Present Illness: Patient is a 74-year-old woman. She has a history of diabetes, hyperten shell, dyslipidemia, gastroesophageal reflux disease, and hypothyroidism. Has had a history of abdomi nal aortic repair with an endograft by Dr. Harris in [place]. She also has a history of COPD. She recently saw Dr. Harris and he apparently did a CT angiogram on her stent and there was a small leak and I asked her to come back in a year. She came in with chest pain mostly in the left shoulder, le ft arm, left upper back that has been going on for 2 to 3 days along with palpitations that is someti mes rapid and sometimes just slow with skipping beats. Denied any PND, orthopnea, pedal edema. She denied any syncope. Denied any chest pain, nausea, vomiting, diaphoresis, PND, orthopnea, pedal tani a. Past Medical History: As stated above. Allergies: SHE IS ALLERGIC TO LIPITOR AND JABARI INHIBITOR. APPARENTLY AT ONE POINT, RECEIVED BETA-BLO CKERS FOR HYPOTHYROIDISM. SHE BECAME VERY HYPOTENSIVE. Review of Systems: Negative. Social History: Negative. Family History: Noncontributory. Medications: At home include aspirin, Norvasc, inhalers, Synthroid, glipizide, Vytorin, potassium, S piriva, Januvia, losartan, hydrochlorothiazide, and omeprazole. Physical Examination: General: Very pleasant lady. No acute distress. Vital Signs: Stable, sinus rhythm. HEENT: Negative. Neck: Supple with no bruit. Chest: Clear. Cardiac: Revealed a regular rhythm and rate. No murmurs, gallops, or rubs. Abdomen: Benign. Extremities: Revealed no clubbing, cyanosis, or edema. Diagnostic Data: Magnesium was 1.9, potassium 3.4, otherwise was negative. Impression And Plan: Chest pain with palpitation in a patient with history of diabetes, hypertension , dyslipidemia, multiple cardiac risk factors. She does have slightly low potassium that needs to be supplemented. My biggest concern with palpitations that she may be having atrial fibrillation. Nev ertheless, an echocardiogram and a Lexiscan are pending and we will see what those shows prior to anthony ing any final decisions. I suggest that we follow on a low-dose beta-demetrius. Hopefully, she will t olerate that better this time and maybe change the losartan HCT to losartan only to avoid electrolyte imbalance. I discussed the case further with Dr. Solitario. She continues to have symptoms. I think an event monitor would be reasonable. I will make sure she sees me in the office in the next 2 to 4 we eks. Meanwhile, we will see what her echo and Lexiscan show. DALI/MODL Voice ID: [id number] Report ID: [id number]
[2019-12-17 16:22] VITALS: BP 144/70; TEMP 98.2
--- NOTE | 2019-12-17 22:48 | DS ---
Date of Discharge: 12/17/2019 Disposition: Discharged to go home. Physical Examination: HEENT: Unremarkable. Lungs: Clear to auscultation. Heart: Sounds normal. Abdomen: Soft. Bowel sounds normal. No guarding, rigidity, tenderness, or distention. Extremities: No leg edema. Laboratory Data: Today, white count 8.1, hemoglobin 12.2. Sodium 138, potassium 3.4, chloride 102, bicarb 32, BUN 12, creatinine 1.01, glucose 115. Troponin less than 0.02 x3. Lexiscan stress test negative for stress-induced ischemia. Echocardiogram result was pending when the patient was discharged and we will follow up on the results. Discharge Medications And Instructions: Continue all prior home medications. 1. Metoprolol succinate 25 mg 1 tablet by mouth p.o. daily. 2. Follow up with Dr. Sandoval next week. Follow up with my office week after next. Hospital Course: A 74-year-old pleasant female patient, admitted to the hospital with chest pain, palpitation, and left arm pain. Please see dictated H and P for more information. After patient was evaluated in the ER, she was admitted to the hospital. Dr. Sandoval from Cardiology was consulted. Patient's LA was ruled out. She was asymptomatic during this hospitalization. This morning, she had a negative stress test. Echocardiogram was done, result was pending. Details were discussed with Dr. Sandoval, who released her to go home from cardiology point of view and he will follow up on outpatient basis. Patient reported that her blood pressure has been remaining on the higher side lately at home and pulse rate is also around 90-100 range. With that, we will start her on a small dose of beta-demetrius, metoprolol 25 mg p.o. daily as prescribed and I will see her as outpatient week after next. Details and plan of treatment discussed with the patient. Final Diagnoses: 1. Chest pain. 2. Palpitation. 3. Hypertension. 4. Hypokalemia. 5. Hypomagnesemia. 6. Hyperlipidemia. 7. Type 2 diabetes mellitus. 8. Hypothyroidism. 9. Insomnia. 10. Chronic obstructive pulmonary disease. 11. Gastroesophageal reflux disease. 12. Abdominal aortic aneurysm. EMILEE/MODL Voice ID: [id number] Report ID: [id number]
--- NOTE | 2019-12-18 06:52 | EKG ---
Test Date: 2019-12-16 Test Time: 16:40:02 Filter Washer: DENEEN MEASUREMENT RESULTS: Intervals: Rate: 89 MI: 176 QRSD: 94 QT: 368 QTc: 447 Conger: P: 58 MI: 176 QRS: 22 T: 52 INTERPRETIVE STATEMENTS: Normal sinus rhythm Normal ECG Compared to ECG 03/24/2015 11:49:10 No significant changes Electronically Signed On 12-18-19 06:49:24 CDT by Clint Sandoval
--- NOTE | 2019-12-18 09:44 | TREADPHA ---
DX: CHEST PAIN Date of Study: 12/17/2019 Ht: 5' 8 " Wt: 206 lb 3.2 oz Consulting Physician: MOMO MEDICATIONS: XANAX, ASPIRIN, ZOFRAN, KLOR-CON HISTORY: 74 YEAR OLD FEMALE WITH COMPLAINTS OF CHEST PAIN. MEDICAL HISTORY OF DIABETES MELLITUS, HYPERTENSION, FORMER SMOKER, AORTIC VALVE REPAIR. PHYSICIAL EXAMINATION: RESTING B.P.: 137/80 RESTING H.R.: 76 RESTING EKG: NORMAL PROTOCOL: PHARMACOLOGIC EXERCISE TIME: 3:30 B.P. AT PEAK STRESS: 133/71 IMPRESSION: LEXISCAN INJETED, CARDIOLITE INJECTED PER PROTOCOL. SEE NUCLEAR MEDICINE REPORT. NO SUPRAVENTRICULAR TACHYCARDIA. NO VENTRICULAR TACHYCARDIA. OCCASIONAL PREMATURE VENTRICULAR COMPLEXES. DENIED CHEST PAIN. SIX OUT OF TEN ON PAIN SCALE OF "CHEST PRESSURE".
--- NOTE | 2019-12-18 09:46 | ECHO ---
HEIGHT: 5 ft 8 in WEIGHT: 206 lb 3.2 oz DATE OF STUDY: 12/17/[address]: Fernando Brumfield JR, MD 2-DIMENSIONAL: YES M.MODE: YES DOPPLER: YES COLOR FLOW: YES TDS: YES PORTABLE: DEFINITY: BUBBLE STUDY: DIAGNOSIS: CHEST PAIN CARDIAC HISTORY: CATHERIZATION: NO SURGERY: NO PROSTHETIC VALVE: NO PACEMAKER: NO MEASUREMENTS (cm) DIASTOLIC (NORMALS) SYSTOLIC (NORMALS) IVSd 1.0 (0.6-1.2) LA Diam 2.8 (1.9-4.0) LVEF 61% LVIDd 4.1 (3.5-5.7) LVIDs 2.8 (2.0-3.5) %FS 32% LVPWd 1.3 (0.6-1.2) Ao Diam 2.2 (2.0-3.7) 2 DIMENSIONAL ASSESSMENT: RIGHT ATRIUM: NORMAL LEFT ATRIUM: NORMAL RIGHT VENTRICLE: NORMAL LEFT VENTRICLE: NORMAL TRICUSPID VALVE: NORMAL MITRAL VALVE: NORMAL PULMONIC VALVE: NORMAL AORTIC VALVE: NORMAL PERICARDIAL EFFUSION: NONE AORTIC ROOT: NORMAL LEFT VENTRICULAR WALL MOTION: NORMAL DOPPLER/COLOR FLOW: NORMAL COMMENTS: NORMAL 2-DIMENSIONAL ECHOCARDIOGRAM WITH DOPPLER. NO WALL MOTION ABNORMALITY. NO EFFUSION. TECHNOLOGIST: ADAM MCKNIGHT
== END 2019-12-17 17:12 | disposition home or self-care (01) ==
LOC: ER 16:28 → ERHOLD 18:27 → 2ND 20:31
PROVIDERS: ADMIT Internal Medicine; ATTEND Internal Medicine
DX: R07.9 Chest pain, unspecified (principal); R00.2 Palpitations; I10 Essential (primary) hypertension; E87.6 Hypokalemia; E83.42 Hypomagnesemia; E78.5 Hyperlipidemia, unspecified; E11.9 Type 2 diabetes mellitus without complications; E03.9 Hypothyroidism, unspecified; G47.00 Insomnia, unspecified; K21.9 Gastro-esophageal reflux disease without esophagitis; J44.9 Chronic obstructive pulmonary disease, unspecified; I71.4 Abdominal aortic aneurysm, without rupture
CPT/HCPCS: 36415; 71045; 78452; 80048; 80076; 83735; 83880; 84484; 85025; 85610; 93005; 93017; 93306; 99285; A9500; G0378; J2785; J3475

== ENCOUNTER 2020-04-30 16:09 | Emergency (ER) | payer OTHER ==
--- OUTSIDE RECORDS SUMMARY | 2020-04-30 16:11 | XMS REPORT | Summary of Care ---
:1945 Author Organization [facility] Address [address] [place] [id number] Care Team Providers Name Role Phone Solitario Titi Primary Care Provider Reason for Visit Reason Comments Follow-up Encounter Details Date Type Department Care Team Description 04/23/2020 Office Visit [facility] George Arizmendi Rash and other nonspecific skin eruption (Primary Dx); Dermatology, Cornelio Scott MD Verruca vulgaris; [address] History of nonmelanoma skin cancer [address] [facility] [id number], [place] [phone] Allergies Active Allergy Reactions Severity Noted Date Comments Decongestant Tablet Other - See comments 12/31/2012 "things seem real bright" Atorvastatin Calcium Other - See comments 12/31/2012 Scalp tingles documented as of this encounter (statuses as of 04/23/2020) Medications Medication Sig Dispensed Refills Start Date [...] as of this encounter (statuses as of 04/23/2020) Active Problems No known active problemsdocumented as of this encounter (statuses as of 04/23/2020) Social History Tobacco Use Types Packs/Day Years Used Date Former Smoker Cigarettes Alcohol Use Drinks/Week oz/Week Comments Yes 0 Standard drinks or equivalent 0.0 Sex Assigned at Date Recorded Not on file COVID-19 Exposure Response Date Recorded In the last month, have you been in contact with No / Unsure 04/23/2020 10:56 AM CDT someone who was confirmed or suspected to have Coronavirus / COVID-19? documented as of this encounter Last Filed Vital Signs Not on filedocumented in this encounter Progress Notes Wilfredo Hart MD - 04/23/2020 11:00 AM CDT Mesha Mckeon is a 74 year old female Cc: growth HPI Mesha Mckeno is a 74 year old female who presents for growth on back. The growth has been present for several months, persistent. The spot is pruritic and raised. Denies any associated pain or bleeding. No previous treatments tried. She also notes itching under her breast when she sweats. Histories No past medical history on file. (+) hx of skin cancer SH: [place] [address] Allergies Allergies Allergen Reactions Decongestant Tablet Other - See comments "things seem real bright" Lipitor [Atorvastatin Calcium] Other - See comments Scalp tingles Medications Current Outpatient Medications on File Prior to Visit Medication Sig Dispense Refill [...] B COMPLEX ORAL Take by mouth. No current facility-administered medications on file prior to visit. Review of Systems Skin: Itching (+), Pain (-) Heme: Bleeding (-) Physical Exam There were no vitals taken for this visit. Positive (+), Negative (-) General : Awake, no acute distress, well developed, well nourished Psychiatric: Normal affect, mood, speech and thought content Neurology: Alert, oriented to person, place, and situation Pulmonary: Breathing unlabored FACE: Negative EYES: Negative NOSE: Negative EARS: Negative SCALP: Negative NECK: Negative CHEST: Negative ABDOMEN: Negative BACK: Positive RIGHT ARM: Negative LEFT ARM: Negative (-)=Negative,(+)=Positive Actinic Keratosis (A): erythematous scaling papules [...] well circumscribed evenly pigmented macule Nevus Papular (SHOE CLERK): well circumscribed evenly pigmented papule Psoriasis Circumscribed (PC): well circumscribed erythema and scaling Psoriasis Diffuse (PD): diffuse patches of erythema and scaling Seborrheic Keratosis (SK): verrucous brown papules and plaques Scar (SR): cicatricial change Verruca Vulgarus (W): warty hyperkeratotic papule Assessment/Plan 1) Rash and other nonspecific skin eruption - bilateral inframammary folds (no rash on PE today) DDx: contact dermatitis vs drug reaction vs other - Etiology and treatment options discussed - Recommended dove sensitive skin soap - Avoid fragrances, dryer sheets - Sensitive skin detergent - Explained importance of avoiding contact with allergens - Discussed reviewing medications with PCP - Start Hydrocortisone 1% cream BIDprn OTC - Start Sarna Sensitive OTC BID PRN 2) Verruca Vulgaris - L lower back - Etiology and treatments reviewed - Treated with LN2 x 1 - Risks and side effectes discussed (pain, blistering, scar, etc) - In 1 week, start OTC salicylic acid QHS with occlusion, file down prn 3) History of NMSC SCC, 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 - Counseled patient regarding sunscreen, sun avoidance, and sun protection. - Pt educated on ABCD's of melanoma. - Recommend regular skin checks. RTC 12 months Patient seen and examined with Dr. Arizmendi, who agrees with the plan of care. Wilfredo Hart MD 11:09 AM PGY-2 [facility] Dermatology documented in this encounter Plan of Treatment Date Type Specialty Care Team Description 04/26/2021 Office Visit Dermatology Sam Arizmendi MD [address] [place] [id number] Health Maintenance Due Date Last Done Comments HEPATITIS C (HCV) SCREEN 1945 DTaP,Tdap,and Td Vaccines (1 - Tdap) 1965 Breast Cancer Screening (MAMMOGRAM) 1986 COLON CANCER SCREENING ANNUAL FIT/FOBT 1996 COLON CANCER SCREENING FIT DNA EVERY 3 YEARS 1996 COLON CANCER SCREENING SIGMOIDOSCOPY EVERY 5 YEARS 1996 COLONOSCOPY 1996 Colorectal Cancer Screening 1996 Zoster Recombinant Vaccine (SHINGRIX) (1 of 2) 1996 LUNG CANCER SCREEN: Recommended for age 55-80 with 30 2001 + pack year history Medicare Wellness Visit 2011 Osteoporosis Screening 2011 PNEUMOCOCCAL VACCINES 65+ (1 of 1 - PPSV23) 2011 INFLUENZA VACCINE (#1) 2020 Depression Screening 07/29/2020 07/29/2019 documented as of this encounter Results Not on filedocumented in this encounter Visit Diagnoses Diagnosis Rash and other nonspecific skin eruption - Primary Verruca vulgaris Viral warts, unspecified History of nonmelanoma skin cancer Personal history of other malignant neop lasm of skin documented in this encounter Insurance Payer Benefit Plan / Subscriber ID Effective Dates Phone Addre ss Type Group HUMANA - HUMANA [id number] 2016-[facility] Adv MANAGED MEDICARE ERS t PPO MEDICARE (Work) documented as of this encounter Advance Directives Type Date Recorded Patient Sap Portal Consultant Explanati on Advance Directives and Living Will Power of Sole Sewer Hand
--- OUTSIDE RECORDS SUMMARY | 2020-04-30 16:11 | XMS REPORT | Continuity of Care Document ---
:1945 Author Organization [facility] t Address [address] [place] [address] Care Team Providers Name Role Phone Titi Solitario MD Primary Care Physician Tyler Arizmendi MD Attending Clinician Mainor SINGH Attending Clinician Unavailable Neo Harris MD Attending Clinician Payers Payer Name Policy Type Policy Number Effective Date Expiration Source Date HUMANA xxxxxxxxx 2017 [place] MEDICAREHUMANA 00:00:00 [place] MEDICARE PPO/PFFS/ERS [id number]/ 8-[id number] Problems Condition Condition Condition Status Onset Resolution Last Treating Co mments Source Name Details Category Date Date Treatment Clinician Date Diabetes Diabetes Disease Active [place] mellitus mellitus 08-23 Method i 00:00: st 00 Hypertensi Hypertensi Disease Active [place] on 08-23 Method[facility] 00:00: st 00 AAA AAA Disease Active Last [place] (abdominal (abdominal 08-23 Assessmen [facility] aortic aortic 00:00: t & Plan: st aneurysm) aneurysm) 00 Assessmen (HCC) s/p (HCC) s/p t:Patient 2013 with abdominal aortic aneurysm. The patient and I went over the anatomy related to this, risk factors, warning signs, and potential for rupture at any size. 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 Endovascu lar and open abdominal aortic aneurysm repair both discussed , described , and used a visual posters to help clarify. Major morbidity and mortality were both discussed . Open aortic complicat ions including injury to nearby structure s, sexual dysfuncti on, later abdominal surgical complicat ions were all discussed . Endovascu lar complicat ions including endoleak, persisten t expansion or rupture, need for lifelong surveilla nce, and access site issues were discussed as well.Plan :-Plan for CTA chest/abd omen/pelv is and abdominal ultrasoun d with repeat f/u visit in one year Aneurysm Aneurysm Disease Active Last [place] artery, artery, 08-23 Assessmen Metho di femoral femoral 00:00: t & Plan: st 00 LE arterial duplex reviewed by me shows R distal GLASS FRAME FITTER pseudoane rusym (0.61 x 0.83 cm) with near-tota l thrombosi s. ABIs reviewed by me are WNL.RTC in 1 year with CTA. Allergies, Adverse Reactions, Alerts Allergy Allergy Status Severity Reaction(s) Onset Inactive Treating Comm ents Source Name Type Date Date Clinician Aller-Ch Propensi Active Other (See 2015-08 T[place] in [place] marlene ty to Comments) 10-11 head [facility] Deconges adverse 00:00: st tant reaction 00 s to drug Atorvast Propensi Active Itching 2015-08 [place] atin ty to 2-21 [facility] adverse 00:00: st reaction 00 s to drug Beta-Blo Propensi Active Unknown 2015-08 [place] ckers ty to Reaction 2- [facility] (Beta-Ad adverse 00:00: st renergic reaction 00 Blocking s to Agts) drug Family History Family Member Diagnosis Comments Start Date Stop Date Source Natural father Aneurysm [facility] thodist Natural father Emphysema [place] [facility] Natural mother Heart failure [facility] Social History Social Habit Start Date Stop Date Quantity Comments Source History of Cigarette Smoker [facility] tobacco use Sex Assigned At [facility] ethodi Alcohol intake 2019-08-07 2019-08-07 Current drinker [place] Jew 00:00:00 00:00:00 of alcohol (finding) Alcohol Comment 2016-08-10 2016-08-10 socially [facility] ethodist 00:00:00 00:00:00 Smoking Status Start Date Stop Date Source Former smoker 2019-08-07 00:00:00 2019-08-07 00:00:00 Prashanth Mcduffieist Medications Ordered Filled Start Stop Current Ordering Indication Dosage Frequency Signature Comments Components Source Medication Medication Date Date Medication? Clinician (SIG) Name Name OMEPRAZOLE 2018-08 Yes omeprazole [place] ORAL 2-18 20 mg [facility] 14:24: capsule,de st 06 layed release levothyroxi 2018-08 Yes 137ug QD Take 137 [place] ne 2-18 mcg by [facility] (SYNTHROID, 14:24: mouth st LEVOXYL) 06 every 137 mcg morning. tablet metFORMIN 2018-08 Yes 1000mg Q.5D Take 1,000 [place] (GLUCOPHAGE 2-18 mg by [facility] ) 1,000 mg 14:24: mouth 2 st tablet 06 (two) times a day with meals. amLODIPine 2018-08 Yes 5mg QD Take 5 mg [place] (NORVASC) 5 2-18 by mouth Meth giovanna mg tablet 14:24: nightly. st 06 glipiZIDE 2018-08 Yes 2.5mg QD Take 2.5 Nancy ston (GLUCOTROL) 2-18 mg by [facility] 2.5 MG 24 14:23: mouth st hr tablet 24 daily. clotrimazol 2015-08 Yes [place] (MYCELEX) 2-13 [facility] 10 mg 00:00: st esteban 00 JANUVIA 100 2015-08 Yes Jose Antonioto n mg tablet 1-20 [facility] 00:00: st 00 VYTORIN 2015-08 Yes [place] 10-40 10-40 1-20 [facility] mg per 00:00: st tablet 00 losartan-hy 2015-08 Yes [place]o n drochloroth 0-20 [facility] iazide 00:00: st (HYZAAR) 00 100-25 mg per tablet potassium 2015-08 Yes [place] chloride 0-18 [facility] (K-DUR) 10 00:00: st MEQ CR 00 tablet INVOKANA 2015-08 Yes [place] 100 mg 0-18 [facility] tablet 00:00: st 00 omeprazole 2015-08 Yes [place] (PriLOSEC) 0-11 [facility] 20 MG 00:00: st capsule 00 SYMBICORT 2015-08 Yes [place] 160-4.5 0-01 [facility] mcg/actuati 00:00: st on inhaler 00 SPIRIVA 2015-08 Yes [place] WITH 0-01 [facility] HANDIHALER 00:00: st 18 mcg per 00 inhalation capsule Vital Signs Vital Name Observation Time Observation Value Comments Source Systolic blood 2019-08-07 14:09:00 173 mm[Hg] Jose Antonioto n Jew pressure Diastolic blood 2019-08-07 14:09:00 96 mm[Hg] [place] pressure Heart rate 2019-08-07 14:09:00 86 /min Prashanth Meraz Body temperature 2019-08-07 14:09:00 36.39 [place] Body height 2019-08-07 14:09:00 172.7 cm Prashanth Meraz Body weight 2019-08-07 14:09:00 93.123 kg Prashanth Meraz BMI 2019-08-07 14:09:00 31.22 kg/m2 Prashanth Meraz Procedures Procedure Date / Time Performed Performing Clinician [facility] e CT ANGIOGRAM CHEST 2019-08-07 13:05:15 Frederic Harris ABDOMEN PELVIS W AND OR WITHOUT CONTRAST POC CREATININE 2019-08-07 12:40:00 Frederic Harris ethodist ESTIMATED GFR 2019-08-07 12:40:00 Frederic Harris ethodist Plan of Care Planned Activity Planned Date Details Comments Source Future Scheduled 2020-05-21 INFLUENZA VACCINE Jose Antonioto n Jew Test 00:00:00 [code = INFLUENZA VACCINE] Future Scheduled 2011 65+ PNEUMOCOCCAL [place] Jew Test 00:00:00 VACCINE (1 of 2 - PCV13) [code = 65+ PNEUMOCOCCAL VACCINE (1 of 2 - PCV13)] Future Scheduled 1996 BREAST CANCER [facility] thodist Test 00:00:00 SCREENING [code = BREAST CANCER SCREENING] Future Scheduled 1996 COLONOSCOPY SCREENING [facility] Jew Test 00:00:00 [code = COLONOSCOPY SCREENING] Future Scheduled 1996 SHINGLES VACCINES (#1) [place] Test 00:00:00 [code = SHINGLES VACCINES (#1)] Future Scheduled 1956 DIABETIC FOOT EXAM [place] Test 00:00:00 [code = DIABETIC FOOT EXAM] Future Scheduled 1956 URINE MICROALBUMIN [place] Test 00:00:00 [code = URINE MICROALBUMIN] Future Scheduled 1946 DIABETIC RETINAL EYE Nancy deon Jew Test 00:00:00 EXAM [code = DIABETIC RETINAL EYE EXAM] Encounters Start End Encounter Admission Attending Care Care Encounter Source Date/Time Date/Time Type Type Clinicians Facility Department ID 2020-04-23 2020-04-25 Office JEREMY Arizmendi [id number] 10:58:52 08:59:47 Visit George Scott MULTISPEC [id number] IALTY [id number] MICHIE [id number] AND [facility] 2019-08-07 2019-08-07 Outpatient [facility] [id number] [place] 00:00:00 00:00:00 FREDERIC [address] Results Test Description Test Time Test Comments Results Result Sourc e Comments CT Angiogram 2019-07-21 [facility] Chest W Contrast 8 Radiology Results M ethodist Abdomen W 15:51:43 - 08/07/2019 Contrast Pelvis 3:54 PM W Contrast CSTEXAMINATION: CT ANGIOGRAM CHEST ABDOMEN PELVIS W AND OR WITHOUT CONTRASTCLINICAL HISTORY: I71.4 Abdominal aortic aneurysm without rupture, annual f u s p FEVAR 2014TECHNIQUE: Multiple CT angiographic images of the chest, abdomen, and pelvis were obtained during intravenous administration of contrast. Multiple computerized reformatted images as well as 3-D volume rendered images were also obtained.CT imaging was performed with iterative reconstruction techniques and/or automated exposure control to reduce radiation dose.Precontrast and delayed postcontrast imaging sequences were also obtained of the abdomen.COMPARISON: CTA chest, abdomen and pelvis 08/12/2014rterial:1. 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 The excluded abdominal aortic aneurysm has significantly decreased in size, now there is a transverse diameter of 3.4 cm versus 4.7 cm previously.2.There is enhancement within the excluded aneurysm sac (series 6 image [id number]), consistent with an endoleak. There is no obvious source feeding vessel, the site of contrast enhancement is not contiguous with the proximal and distal landing zones of the stent, and potentially this is a type III endoleak.3.The thoracic aorta demonstrates no dissection, aneurysm, now only mild atherosclerosis.4.The brachiocephalic, left common carotid, and left subclavian arteries are normal. 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 There is no acute consolidation.2.There is no pleural or pericardial effusion.3.No thoracic lymphadenopathy is seen.4.The heart size is normal.IMPRESSION:Sub stantial interval decrease in size of abdominal aortic aneurysm. Evidence of endoleak, possibly type III, as discussed above.[id number] P[facility] creatinine 2019-08-07 12:41:31 Test Item Value Reference Range Interpretation Comme nts POC creatinine (test code = 74255-8) 0.9 mg/dl 0.5-0.9 Prashanth MerazEstimated [id number] 12:41:31 Test Item Value Reference Range Interpretation Comments Estimated GFR (test 63 mL/min/1.73 m2 [facility] Units code = 77361-9) Interpretati onG1 >=90 Normal or highG2 60-89 Mildly lxtouebplS5h 45-59 Mildly to mode rately rmvpmmtrmC8a 30-44 Moderately to severely decreasedG4 15-29 Severely decre asedG5 <15 Kidn ey failureThe eGFR was calculated meg g the Chronic Kidney Disease Epidemiology Co llaboration (CKD-EPI) equat ion. Interpretation is based on recommendations of the National Kidney Foundation-Kidn ey Disease Outcomes Qualit y Initiative (NKF-KDOQI) pub lished in 2014. Prashanth Meraz
--- OUTSIDE RECORDS SUMMARY | 2020-04-30 16:11 | XMS REPORT | Summary of Care ---
:1945 Author Organization [facility] Address [address] [place] [address] Care Team Providers Name Role Phone Kassi Titi Primary Care Provider Encounter Details Date Type Department Care Team Description 04/23/2020 Orders Only [facility] Doctor Unassigned, No [address] [facility] [place] [address] [address] [place] [address] Allergies Active Allergy Reactions Severity Noted Date [...] Arizmendi MD [address] [place] [id number] 555 Health Maintenance Due Date Last Done [...] 07/29/2020 07/29/2019 documented as of this encounter Procedures Procedure Name Priority Date/Time Associated Diagnosis Comme nts ASSIGNMENT OF BENEFITS Routine 04/23/2020 10:58 AM CDT documented in this encounter Results Not on filedocumented in this encounter Insurance Payer Benefit Plan / Subscriber ID Effective Dates Phone Addre ss Type Group HUMANA - HUMANA [id number] [facility] Adv MANAGED MEDICARE ERS t PPO MEDICARE documented as of this encounter Advance Directives Type Date Recorded 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
--- OUTSIDE RECORDS SUMMARY | 2020-04-30 16:11 | XMS REPORT | Summary of Care ---
:1945 Author Organization [facility] Address [address] [place] [id number] Care Team Providers Name Role Phone Solitario Titi Primary Care Provider Reason for Visit Reason Comments Follow-up Encounter Details Date Type Department Care Team Description 04/23/2020 Office Visit [facility] George Arizmendi Rash and other nonspecific skin eruption (Primary Dx); Dermatology, Cornelio Scott MD Verruca vulgaris; [address] History of nonmelanoma skin cancer [address] [facility] [id number], [place] [phone] Allergies Active Allergy Reactions Severity Noted [...] year old female Cc: growth HPI Mesha Mckeon is a 74 year old female who presents for growth on back. The growth has been present for several months, persistent. The spot is pruritic and raised. Denies any associated pain or bleeding. No previous treatments tried. She also notes itching under her breast when she sweats. Histories No past medical history on file. (+) hx of skin cancer SH: [place] [address] Allergies Allergies Allergen Reactions Decongestant Tablet Other [...] well circumscribed evenly pigmented macule Nevus Papular (ATTIC BLOWER): well circumscribed evenly pigmented papule Psoriasis Circumscribed [...] care. Wilfredo Hart MD 11:09 AM PGY-[address] [facility] Dermatology documented in this encounter Plan of Treatment Date Type Specialty Care Team Description 04/26/2021 Office Visit Dermatology Sam Arizmendi MD [address] [place] [id number] 555 Health Maintenance Due Date Last Done [...] Addre ss Type Group HUMANA - HUMANA [id number] 2016-[facility] Adv MANAGED MEDICARE ERS t PPO MEDICARE (Work) documented as of this encounter Advance Directives Type Date Recorded Patient Manager Wholesale Explanati on Advance Directives and Living Will Power of Front Office Administrator
--- OUTSIDE RECORDS SUMMARY | 2020-04-30 16:11 | XMS REPORT | Clinical Summary ---
:1945 Author Organization [facility] Address [address] [place] [address] Care Team Providers Name Role Phone Titi Solitario MD Primary Care Provider Allergies Active Allergy Reactions Severity Noted Date Comments Aller-Chlor Decongestant Other (See Comments) Low 08/10/20 16 Tingle in head Atorvastatin Itching High 08/10/2016 Beta-Blockers Unknown Reaction 08/10/2016 (Beta-Adrenergic Blocking Agts) Medications Medication Sig Dispensed Refills Start Date End Date Status SYMBICORT 160-4.5 0 05/21/2016 A ctive mcg/actuation inhaler losartan-hydrochloroth 0 06/09/2016 Active iazide (HYZAAR) 100-25 mg per tablet omeprazole (PriLOSEC) 0 05/31/2016 Active 20 MG capsule potassium chloride 0 06/07/2016 Active (K-DUR) 10 MEQ CR tablet JANUVIA 100 mg tablet 0 07/10/2016 Active SPIRIVA WITH 0 05/21/2016 Active HANDIHALER 18 mcg per inhalation capsule OMEPRAZOLE ORAL omeprazole 20 mg 0 Active capsule,delayed release INVOKANA 100 mg tablet 0 06/07/2016 Active VYTORIN 10-40 10-40 mg 0 07/10/2016 Active per tablet clotrimazole (MYCELEX) 0 08/02/2016 Active 10 mg esteban levothyroxine Take 137 mcg by 0 Active (SYNTHROID, LEVOXYL) mouth every 137 mcg tablet morning. metFORMIN (GLUCOPHAGE) Take 1,000 mg by 0 Active 1,000 mg tablet mouth 2 (two) times a day with meals. glipiZIDE (GLUCOTROL) Take 2.5 mg by 0 Active 2.5 MG 24 hr tablet mouth daily. amLODIPine (NORVASC) 5 Take 5 mg by mouth 0 Active mg tablet nightly. Active Problems Problem Noted Date Diabetes mellitus 08/23/2017 Hypertension 08/23/2017 AAA (abdominal aortic aneurysm) (HCC) s/p FEVAR 2013 0 08/23/2017 Last Assessment & Plan: Assessment: Patient with abdominal aortic aneurysm. The patient and I went over the anatomy related to this, risk factors, warning signs, and potential for rupture at any size. Discussed with the patient our gene ral practice to wait until 5.5 cm and th e reasoning behind that. Endovascular and open abdominal aortic aneurysm repair both discussed, described, and used a visual posters to help clarify. Major morb idity and mortality were both discussed. Open aortic complications including injury to nearby structures, sexual dysfunction, later abdominal surgical complications were all discussed. Endovascular co mplications including endoleak, persiste nt expansion or rupture, need for lifelong surveillance, and access site issues were discussed as well. 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 ABIs reviewed by me are WNL. RTC in 1 year with CTA. Encounters Date Type Specialty Care Team Description 01/29/2020 Telephone Cardiovascular Sangeetha Hayward MA 08/07/2019 Office Visit Cardiovascular Javy Harris Abdominal ao rtic MD Neo aneurysm (AAA) without rupture (HCC) ( Primary Dx) 08/07/2019 Hospital Encounter Radiology Javy Harris Abdomina l aortic MD Neo aneurysm (AAA) without rupture (HCC) after 04/30/2019 Family History Medical History Relation Name Comments Aneurysm Father Emphysema Father Heart failure Mother Relation Name Status Comments Father Mother Social History Tobacco Use Types Packs/Day Years Used Date Former Smoker Cigarettes Smokeless Tobacco: Former User Alcohol Use Drinks/Week oz/Week Comments Yes socially Sex Assigned at Date Recorded Not on file Job Start Date Occupation Industry Not on file Not on file Not on file Travel History Travel Start Travel End No recent travel history available. Last Filed Vital Signs Vital Sign Reading Time Taken Comments Blood Pressure 173/96 08/07/2019 2:09 PM [employer] Pulse 86 08/07/2019 2:09 PM [facility] [employer] Temperature 36.4 C (97.5 F) 08/07/2019 2:09 PM [facility] [employer] Respiratory Rate - - Oxygen Saturation - - Inhaled Oxygen Concentration - - Weight 93.1 kg (205 lb 4.8 oz) 08/07/2019 2:09 PM [facility] [employer] Height 172.7 cm (5' 8") 08/07/2019 2:09 PM [facility] [employer] Body Mass Index 31.22 08/07/2019 2:09 PM [facility] [employer] Plan of Treatment Health Maintenance Due Date Last Done Comments DIABETIC RETINAL EYE EXAM 1945 DIABETIC FOOT EXAM 1956 URINE MICROALBUMIN 1956 BREAST CANCER SCREENING 1996 COLONOSCOPY SCREENING 1996 SHINGLES VACCINES (#1) 1996 65+ PNEUMOCOCCAL VACCINE (1 of 2 - PCV13) 2011 INFLUENZA VACCINE 05/21/2020 Procedures Procedure Name Priority Date/Time Associated Comments Diagnosis CT ANGIOGRAM CHEST Routine 08/07/2019 1:05 PM Abdominal aorti c Results for this ABDOMEN PELVIS W AND [facility] [employer] aneurysm (AAA) proce dure are in OR WITHOUT CONTRAST without rupture the r esults (HCC) section. ESTIMATED GFR Routine 08/07/2019 12:40 PM Results for this [facility] [employer] procedure are i n the results section. POC CREATININE Routine 08/07/2019 12:40 PM Result s for this [facility] [employer] procedure are i n the results section. after 04/30/[address] Angiogram Chest W Contrast Abdomen W Contrast Pelvis W Contrast (08/07/2019 1:05 PM [facility]) Specimen Narrative Performed At EXAMINATION: CT ANGIOGRAM CHEST ABDOMEN PELVIS W AND OR WITHOUT HM RADIANT CONTRAST CLINICAL HISTORY: I71.4 Abdominal aortic aneurysm without rupture, annual f u s p 2013 TECHNIQUE: Multiple CT angiographic images of the ches t, abdomen, and pelvis were obtained during intravenous administration of contrast. Multiple computerized reformatted images as well as 3- D volume rendered images were also obtained. CT imaging was performed with iterative reconstruction techniques and/or automated exposure control to reduce rad iation dose. Precontrast and delayed postcontrast imaging sequences were also obtained of the abdomen. 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 The excluded abdominal aortic aneu rysm has significantly decreased in size, now there is a transv erse diameter of 3.4 cm versus 4.7 cm previously. 2.There is enhancement within the excluded aneurysm sa c (series 6 image [id number]), consistent with an endoleak. There is no obvio us source feeding vessel, the site of contrast enhancement is not contig uous with the proximal and distal landing zones of the stent, and potentially this is a type II I endoleak. 3.The thoracic aorta demonstrates no dissection, aneur ysm, now only mild atherosclerosis. 4.The brachiocephalic, left common carotid, and left s ubclavian arteries are normal. The left vertebral artery arises off the a ortic arch and is normal. 5.Kinked and narrowed celiac artery origin from median arcuate ligament compression is stable. 6.The superior mesenteric and bilateral renal arteries are patent. 7.The imaged iliofemoral arteries are mi nimally atherosclerotic. 8.Embolization coils medial to and below the left mateo l hilum are redemonstrated. Nonarterial: 1.Bilateral emphysema is stable. There i s no acute consolidation. 2.There is no pleural or pericardial eff usion. 3.No thoracic lymphadenopathy is seen. 4.The heart size is normal. IMPRESSION: Substantial interval decrease in size of abdominal aor tic aneurysm. Evidence of endoleak, possibly type III, as discussed above. [id number] Procedure Note Hm Interface, Radiology Results Incoming - 08/07/2019 3:54 PM [facility] EXAMINATION: CT ANGIOGRAM CHEST ABDOMEN PELVIS W AND OR WITHOUT CONTRAST CLINICAL HISTORY: I71.4 Abdominal aorti c aneurysm without rupture, annual f u s p 2013 TECHNIQUE: Multiple CT angiographic imag es of the chest, abdomen, and pelvis were obtained during intravenous administration of contrast. Multiple computerized reformatted images as well as 3-D volume rendered images were also obtained. CT imaging was performed with iterative reconstruction techniques and/or automated exposure control to reduce radiation dose. Precontrast and delayed postcontrast hesham ging sequences were also obtained of the abdomen. COMPARISON: CTA chest, abdomen and pelv is 08/12/2014 Arterial: 1.Bifurcated aortoiliac endograft stents in the bilateral renal arteries are redemonstrated. The excluded abdominal aortic aneurysm has significantly decreased in size, now there is a transverse diameter of 3.4 cm versus 4.7 cm previously. 2.There is enhancement within the exclud ed aneurysm sac (series 6 image [id number]), consistent with an endoleak. There is no obvious source feeding vessel, the site of contrast enhancement is not contiguous with the proximal and distal landing zones of the stent, and potentially this is a type II I endoleak. 3.The thoracic aorta demonstrates no dis section, aneurysm, now only mild atherosclerosis. 4.The brachiocephalic, left common carot id, and left subclavian arteries are normal. The left vertebral artery arises off the aortic arch and is normal. 5.Kinked and narrowed celiac artery orig in from median arcuate ligament compression is stable. 6.The superior mesenteric and bilateral renal arteries are patent. 7.The imaged iliofemoral arteries are mi nimally atherosclerotic. 8.Embolization coils medial to and below the left renal hilum are redemonstrated. Nonarterial: 1.Bilateral emphysema is stable. There i s no acute consolidation. 2.There is no pleural or pericardial eff usion. 3.No thoracic lymphadenopathy is seen. 4.The heart size is normal. IMPRESSION: Substantial interval decrease in size of abdominal aortic aneurysm. Evidence of endoleak, possibly type III, as discussed above. [id number] Performing Organization Address City/State/Zipcode Phone Number [facility] [address] [place] [address] Estimated GFR (08/07/2019 12:40 PM [facility] [employer]ER) [facility] Signature Estimated GFR 63 mL/min/1.73 [facility] Comment: m2 HOSPITAL Catergory Units Interpretation G1 >=90 Normal or high G2 60-89 Mildly decreased G3a 45-59 Mildly to moderately decreas ed G3b 30-44 Moderately to severely decre ased G4 15-29 Severely decreased G5 <15 Kidney failure The eGFR was calculated using the Chronic Kidney Disea se Epidemiology Collaboration (CKD-EPI) equation. Interpretation is based on recommendations of the National Kidney Foundation-Kidney Disease Outcomes [place] lity Initiative (NKF-KDOQI) published in 2014. Specimen Blood Performing Organization Address City/State/Zipcode Phone Number [facility] DEPARTMENT OF PATHOLOGY AND [address] [place], [place] [address] GENOMIC MEDICINE [address] [address] POC creatinine (08/07/2019 12:40 PM [facility] [employer]ESSER) Pathologist Sig nature POC creatinine 0.9 0.5 - 0.9 mg/dl [facility] Specimen Blood Performing Organization Address City/State/Zipcode Phone Number [facility] DEPARTMENT OF PATHOLOGY AND [address] [place], [place] [address] GENOMIC MEDICINE [facility] [address] [place] [address] after 04/30/2019 Insurance Payer Benefit Plan / Subscriber ID Effective Dates Phone Addre ss Type Group HUMANA MEDICARE HUMANA MEDICARE xxxxxxxxx 2017-Present PPO PPO/PFFS/ERS MCR Advance Directives For more information, please contact: [phone] Type Date Recorded Patient Rn Utilization Management Um Explanati on Advance Directives, Living Will and 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
--- OUTSIDE RECORDS SUMMARY | 2020-04-30 16:12 | XMS REPORT | Summary of Care ---
:1945 Author Organization [facility] Address [address] [place] [address] Care Team Providers Name Role Phone Solitario Titi Primary Care Provider Reason for Visit Reason Comments Follow-up Encounter Details Date Type Department Care Team Description 04/23/2020 Office Visit [facility] George Arizmendi Rash and other nonspecific skin eruption (Primary Dx); Dermatology, Cornelio Scott MD Verruca vulgaris; [address] History of nonmelanoma skin cancer [address] [facility] [id number], [place] [id number] Allergies Active Allergy Reactions Severity Noted Date Comments Decongestant Tablet Other - See comments 12/31/2012 "things seem real bright" Atorvastatin Calcium Other - See comments 12/31/2012 Scalp tingles documented as of this encounter (statuses as of 04/25/2020) Medications Medication Sig Dispensed Refills Start Date [...] as of this encounter (statuses as of 04/25/2020) Active Problems No known active problemsdocumented as of this encounter (statuses as of 04/25/2020) Social History Tobacco Use Types Packs/Day Years [...] hx of skin cancer SH: [place] [address] Allergies Allergies Allergen Reactions Decongestant Tablet Other [...] well circumscribed evenly pigmented macule Nevus Papular (RN RADIATION): well circumscribed evenly pigmented papule Psoriasis Circumscribed [...] care. 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
[2020-04-30 17:31] LABS: Absolute Lymphocytes (CBC) 1.1 K/uL (0.7-4.9); Hematocrit 39.4 % (36.0-45.0); Lymphocytes % 13.9 % (15.3-44.8); MPV 8.1 fL (7.6-11.3)
[2020-04-30 17:32] LABS: Protime INR 0.94
[2020-04-30 18:03] LABS: ALT/SGPT 28 U/L (12-78); AST/SGOT 14 U/L (15-37); Albumin 3.8 g/dL (3.4-5.0); Alkaline Phosphatase 83 U/L (45-117); BUN Blood Urea Nitrogen 12 mg/dL (7-18); Bicarbonate 28 mmol/L (21-32); Bilirubin Direct 0.2 mg/dL (0-0.2); Bilirubin Total 0.7 mg/dL (0.2-1.0); Glucose Level 122 mg/dL (74-106); Magnesium 1.8 mg/dL (1.8-2.4); NT PRO-BNP 289 pg/mL (<125); Potassium 3.5 mmol/L (3.5-5.1); Protein, Total 7.3 g/dL (6.4-8.2); Sodium Level 139 mmol/L (136-145); Troponin (Emerg Dept Use Only) < 0.02 ng/mL (0.0-0.045)
--- NOTE | 2020-04-30 18:35 | EDPHYS ---
Physician Documentation [facility] Name: Mesha Mckeon Age: 74 yrs Sex: Female : 1945 Arrival Date: 04/30/2020 Time: 16:21 Bed 23 Private MD: ED Physician Fernando Brumfield HPI: 04/30 16:33 This 74 yrs old Female presents to ER via EMS with complaints of High Blood jmm Pressure. 16:33 The patient has elevated blood pressure and discovered this at home. Onset: The jmm symptoms/episode began/occurred today. Modifying factors: The symptoms are aggravated by activity, The symptoms are alleviated by. Associated signs and symptoms: Pertinent negatives: chest pain, dyspnea, lightheadedness. This is a 74 year old female with a a history of DM, HTN that presents to the ED with complaints of elevated blood pressure. Patient denies chest pain, headache, shortness of breath, abdominal pain, weakness. Patient states BP was over 200 systolic at home. . Historical: - Allergies: 16:37 JABARI INHIBITORS; jl7 16:37 Lipitor; jl7 16:37 Decongestants; jl7 - Home Meds: 16:37 losartan-hydrochlorothiazide 100-12.5 mg Oral tab 1 tab once daily [Active]; metoprolol jl7 succinate oral 12.5 mg oral once daily [Active]; folic acid 1 mg Oral tab 1 tab once daily [Active]; Synthroid 137 mcg Oral tab 1 tab once daily [Active]; omeprazole 20 mg Oral cpDR 1 cap once daily [Active]; aspirin 81 mg Oral chew 1 tab once daily [Active]; Vytorin 10-40 10-40 mg Oral tab 1 tab once daily [Active]; Vitamin B-12 Oral [Active]; Klor-Con 10 10 mEq Oral TbER [Active]; metformin 1,000 mg Oral tab 1 tab 2 times per day [Active]; Januvia 100 mg Oral tab 1 tab once daily [Active]; glipizide 2.5 mg Oral tr24 1 tabs once daily [Active]; Flonase 50 mcg/actuation Nasal spsn 2 sprays once daily [Active]; Symbicort 160-4.5 mcg/actuation inhalation HFAA [Active]; Spiriva Respimat inhalation inhalation [Active]; - PMHx: 16:37 Diabetes - NIDDM; Hypertension; jl7 - PSHx: 16:37 Knee surgery; aortic aneurysm repair; Tonsillectomy; D \T\ C; Hysterectomy; jl7 - Immunization history:: Adult Immunizations unknown. - Social history:: Smoking status: Patient denies any tobacco usage or history of. ROS: 16:33 Constitutional: Negative for fever, chills, and weight loss, Cardiovascular: Negative [facility] for chest pain, palpitations, and edema, Respiratory: Negative for shortness of breath, cough, wheezing, and pleuritic chest pain, Abdomen/GI: Negative for abdominal pain, nausea, vomiting, diarrhea, and constipation, Neuro: Negative for headache, weakness, numbness, tingling, and seizure. 16:33 All other systems are negative. Exam: 16:33 Constitutional: This is a well developed, well nourished patient who is awake, alert, jmm and in no acute distress. Head/Face: atraumatic. Eyes: EOMI, no conjunctival erythema appreciated ENT: Moist Mucus Membranes Neck: Trachea midline, Supple Chest/axilla: Normal chest wall appearance and motion. Cardiovascular: Regular rate and rhythm. No edema appreciated Respiratory: Normal respirations, no respiratory distress appreciated Abdomen/GI: Non distended, soft Back: Normal ROM Skin: General appearance color normal MS/ Extremity: Moves all extremities, no obvious deformities appreciated, no edema noted to the lower extremities Neuro: Awake and alert, normal gait Psych: Behavior is normal, Mood is normal, Patient is cooperative and pleasant 18:33 ECG was reviewed by the Attending Physician. [facility] Vital Signs: 16:21 BP 161 / 82; Pulse 75; Resp 15; Temp 98.8; Pulse Ox 99% ; Pain 0/10; jl7 18:02 BP 153 / 89; Pulse 69; Resp 15; Pulse Ox 96% ; jl7 MDM: 16:33 Patient medically screened. [facility] 18:33 Data reviewed: vital signs, nurses notes. Counseling: I had a detailed discussion with [facility] the patient and/or guardian regarding: the historical points, exam findings, and any diagnostic results supporting the discharge/admit diagnosis, the need for outpatient follow up, to return to the emergency department if symptoms worsen or persist or if there are any questions or concerns that arise at home. 04/30 16:38 Order name: Basic Metabolic Panel; Complete Time: 18:33 04/30 16:38 Order name: CBC with Diff; Complete Time: 17:50 04/30 16:38 Order name: LFT's; Complete Time: 18:33 04/30 16:38 Order name: Magnesium; Complete Time: 18:33 04/30 16:38 Order name: NT PRO-BNP; Complete Time: 18:33 04/30 16:38 Order name: PT-INR; Complete Time: 18:33 04/30 16:38 Order name: Troponin (emerg Dept Use Only); Complete Time: 18:33 04/30 16:38 Order name: EKG; Complete Time: 16:39 04/30 16:38 Order name: Cardiac monitoring; Complete Time: 17:10 04/30 16:38 Order name: EKG - Nurse/Tech; Complete Time: 18:01 04/30 16:38 Order name: IV Saline Lock; Complete Time: 17:10 04/30 16:38 Order name: Labs collected and sent; Complete Time: 17:10 04/30 16:38 Order name: O2 Per Protocol; Complete Time: 17:10 04/30 16:38 Order name: O2 Sat Monitoring; Complete Time: 17:10 jmm EC:33 Rate is 65 beats/min. Rhythm is regular. QRS [place] is Normal. AR interval is normal. QRS jmm interval is normal. QT interval is normal. No Q waves. T waves are Normal. No ST changes noted. Reviewed by me. Administered Medications: No medications were administered Disposition: 04/30/20 18:34 Discharged to Home. Impression: Elevated Blood Pressure. - Condition is Stable. - Discharge Instructions: How to Take Your Blood Pressure, [id number]. - Medication Reconciliation Form, Thank You Letter, Antibiotic Education, Prescription Opioid Use form. - Follow up: Private Physician; When: 2 - 3 days; Reason: Recheck today's complaints, Continuance of care, Re-evaluation by your physician. Addendum: 05/02/2020 19:27 Co-signature as Attending Physician, Fernando Brumfield MD. r n Signatures: Dispatcher [employer] EDSaran Ocampo PA PA jmm Nieto, Roman, MD MD rn Leal, Jahala, RN RN jl7 Corrections: (The following items were deleted from the chart) 04/30 18:46 18:34 04/30/2020 18:34 Discharged to Home. Impression: Elevated Blood Pressure. jl7 Condition is Stable. Forms are Medication Reconciliation Form, Thank You Letter, Antibiotic Education, Prescription Opioid Use. Follow up: Private Physician; When: 2 - 3 days; Reason: Recheck today's complaints, Continuance of care, Re-evaluation by your physician. joanne
--- NOTE | 2020-04-30 18:35 | ER ---
Nurse's Notes [facility] Name: Mesha Mckeon Age: 74 yrs Sex: Female : 1945 Arrival Date: 04/30/2020 Time: 16:21 Bed 23 Private MD: Diagnosis: Elevated Blood Pressure Presentation: 04/30 16:21 Chief complaint: EMS states: Hypertension, initial was 210/130 and has decreased on the jl7 ride here to 140's systolic. Coronavirus screen: Client denies travel out of the [place] in the last 14 days. At this time, the client does not indicate any symptoms associated with coronavirus-19. Ebola Screen: No symptoms or risks identified at this time. Initial Sepsis Screen: Does the patient meet any 2 criteria? No. Patient's initial sepsis screen is negative. Does the patient have a suspected source of infection? No. Patient's initial sepsis screen is negative. Risk Assessment: Do you want to hurt yourself or someone else? Patient reports no desire to harm self or others. Onset of symptoms was April 30, 2020. Care prior to arrival: Glucose check: 135. Transition of care: patient was not received from another setting of care. 16:21 Method Of Arrival: [facility]: [facility] 16:21 Acuity: EVA 3 jl7 Triage Assessment: 16:37 General: Appears in no apparent distress. comfortable, Behavior is calm, cooperative, jl7 appropriate for age. Pain: Denies pain. Neuro: Level of Consciousness is awake, alert, obeys commands, Oriented to person, place, time, situation. Cardiovascular: Denies chest pain, Patient's skin is warm and dry. Respiratory: Airway is patent Respiratory effort is even, unlabored, Respiratory pattern is regular, symmetrical, Denies shortness of breath. GI: No signs and/or symptoms were reported involving the gastrointestinal system. : No signs and/or symptoms were reported regarding the genitourinary system. Derm: Skin is pink, warm \T\ dry. Historical: - Allergies: 16:37 JABARI INHIBITORS; jl7 16:37 Lipitor; jl7 16:37 Decongestants; jl7 - Home Meds: 16:37 losartan-hydrochlorothiazide 100-12.5 mg Oral tab 1 tab once daily [Active]; metoprolol jl7 succinate oral 12.5 mg oral once daily [Active]; folic acid 1 mg Oral tab 1 tab once daily [Active]; Synthroid 137 mcg Oral tab 1 tab once daily [Active]; omeprazole 20 mg Oral cpDR 1 cap once daily [Active]; aspirin 81 mg Oral chew 1 tab once daily [Active]; Vytorin 10-40 10-40 mg Oral tab 1 tab once daily [Active]; Vitamin B-12 Oral [Active]; Klor-Con 10 10 mEq Oral TbER [Active]; metformin 1,000 mg Oral tab 1 tab 2 times per day [Active]; Januvia 100 mg Oral tab 1 tab once daily [Active]; glipizide 2.5 mg Oral tr24 1 tabs once daily [Active]; Flonase 50 mcg/actuation Nasal spsn 2 sprays once daily [Active]; Symbicort 160-4.5 mcg/actuation inhalation HFAA [Active]; Spiriva Respimat inhalation inhalation [Active]; - PMHx: 16:37 Diabetes - NIDDM; Hypertension; jl7 - PSHx: 16:37 Knee surgery; aortic aneurysm repair; Tonsillectomy; D \T\ C; Hysterectomy; jl7 - Immunization history:: Adult Immunizations unknown. - Social history:: Smoking status: Patient denies any tobacco usage or history of. Screenin:39 Abuse screen: Denies threats or abuse. Denies injuries from another. Nutritional jl7 screening: No deficits noted. Tuberculosis screening: No symptoms or risk factors identified. 17:00 Fall Risk IV access (20 points). Total Viera Fall Scale indicates No Risk (0-24 pts). jl7 Assessment: 16:39 General: See triage assessment. jl7 17:55 Reassessment: ERP at bedside discussing results and POC. jl7 18:02 Reassessment: Patient appears in no apparent distress at this time. No changes from jl7 previously documented assessment. Patient and/or family updated on plan of care and expected duration. Pain level reassessed. Patient is alert, oriented x 3, equal unlabored respirations, skin warm/dry/pink. Vital Signs: 16:21 BP 161 / 82; Pulse 75; Resp 15; Temp 98.8; Pulse Ox 99% ; Pain 0/10; jl7 18:02 BP 153 / 89; Pulse 69; Resp 15; Pulse Ox 96% ; jl7 ED Course: 16:21 Patient arrived in ED. jl7 16:21 Saran Gonzalez PA is PHCP. [facility] 16:21 Fernando Brumfield MD is Attending Physician. [facility] 16:30 Triage completed. jl7 16:37 Arm band placed on right wrist. jl7 16:39 Patient has correct armband on for positive identification. Placed in gown. Bed in low jl7 position. Call light in reach. Side rails up X 1. case monitor on. Pulse ox on. NIBP on. Warm blanket given. 17:10 Adilson Clayton, RN is Primary Nurse. jl7 17:10 Initial lab(s) drawn, by ma, sent to lab. Inserted saline lock: 20 gauge in right jl7 wrist, using aseptic technique. Blood collected. 18:02 EKG done, by ED staff, reviewed by Saran MORENO. jl7 18:45 No provider procedures requiring assistance completed. IV discontinued, intact, jl7 bleeding controlled, No redness/swelling at site. Pressure dressing applied. Administered Medications: No medications were administered Outcome: 18:34 Discharge ordered by . [facility] 18:45 Discharged to home ambulatory. jl7 18:45 Condition: stable 18:45 Discharge instructions given to patient, Instructed on discharge instructions, follow up and referral plans. Demonstrated understanding of instructions, follow-up care. 18:46 Patient left the ED. jl7 Signatures: Saran Gonzalez PA PA jmm Leal, Jahala, RN RN jl7
[2020-04-30 19:16] VITALS: TEMP 98.8
[2020-04-30 19:18] VITALS: BP 153/89; O2SAT 96
--- NOTE | 2020-05-01 11:21 | EKG ---
Test Date: 2020-04-30 Test Time: 17:57:40 Pivot Maker: HALIMA MEASUREMENT RESULTS: Intervals: Rate: 65 ME: 206 QRSD: 96 QT: 400 QTc: 416 Harned: P: 63 ME: 206 QRS: 23 T: 20 INTERPRETIVE STATEMENTS: Normal sinus rhythm Normal ECG Compared to ECG 12/16/2019 16:40:02 No significant changes Electronically Signed On 05-01-20 11:20:16 CDT by Clint Sandoval
== END 2020-04-30 18:46 | disposition home or self-care (01) ==
LOC: ER 16:09
DX: I10 Essential (primary) hypertension (principal); E11.9 Type 2 diabetes mellitus without complications; Z79.82 Long term (current) use of aspirin; Z88.8 Allergy status to other drugs, medicaments and biological substances
CPT/HCPCS: 36415; 80048; 80076; 83735; 83880; 84484; 85025; 85610; 93005; 99284